=== PATIENT | female | born 1990 | race Caucasian/White ===

== ENCOUNTER → 2017-06-28 | Outpatient (CLI) | payer OTHER | END | disposition home or self-care (01) | LOC: C.PAPS 09:47 | PROVIDERS: ATTEND Physician Assistant | DX: Z12.4 Encounter for screening for malignant neoplasm of cervix (principal) ==

== ENCOUNTER 2019-01-24 15:53 | Inpatient (IN) ==
[2019-01-24] MEDS ORDERED: OXYTOCIN 30 UNITS/500 ML BAG IV PRN ×2 (16:50)
--- NOTE | 2019-01-24 16:57 | History & Physical Report ---
Date of Service January 24, 2019 Assessment & Plan (1) : Spontaneous labor with rupture of membranes. Admit to L&D, EFM/toco, IV fluids, labs. Patient is planning for epidural. Due to PCN allergy, will give ancef for GBS prophylaxis. Discussed 10% cross- reactivity with patient, given her reaction to PCN as an infant was hives and NOT anaphylaxis, feel that this is low risk. Discussed labor augmentation with pitocin - she is agreeable. Anticipate . History of Present Illness Chief Complaint: leaking of fluid, contractions Primary Care Provider: Mary Manuel 28yo @ 41 05/26 presents with leaking of clear fluid at 3pm. She began shubham at noon today. GBS+, penicillin allergy - as a baby, got hives from penicillin, has not used it or been tested since. Rh negative, rec'd rhogam 10/27/18. Remote history of opioid dependence - 10 years ago, completed rehab and has not used since. + movement, scant vaginal spotting. Allergies Allergy/AdvReac Type Severity Reaction Status Date / Time Penicillins Allergy Unknown Verified 01/23/19 10:39 Home Medications Home Medications Medication Instructions Recorded Confirmed Type prenat.vits,freddy,iie-incc-qddtd 1 tab PO DAILY 12/16/18 01/24/19 History Patient History Medical History Carrier of group B Streptococcus (Acute) Supervision of normal first (Acute) Drug dependence, in remission (Acute) 10 years ago; opiod addiction; 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 Need for rhogam due to Rh negative mother (Acute) Screening, , for anatomic survey (Acute) (Acute) Blood pressure elevated without history of HTN History of vaginal discharge Surgical History History of oral surgery History of umbilical hernia repair 5 years ago Family History Mother Hypertension Aunt Deep vein thrombosis Social History Preferred Language: Dutch Communication Ability: Effective Beliefs That Will Affect Care: None marital status: Current Living Situation: Spouse Other Information That Helps Us Care for You: No Feels Safe at Home: Yes Safety Concerns: Feels Safe At This Time Smoking Status: Former smoker Tobacco Type: cigarettes ; Do You Dip or Chew Tobacco: No ; Smoking End Date: 5 years ago ; Second Hand Exposure: No ; Hx Alcohol Use: No Hx Substance Use: No Review of Systems All systems reviewed & are unremarkable except as noted in HPI & below Physical Exam Physical Exam: Gen: AAOx3 NAD CV: RRR S1S2 L: CTAB Abd: soft, gravid, NTTP Ext: no edema, no calf tenderness SVE: 1-2/90/-2. Grossly ruptured, +nitrizine FHT Cat 1 [place] Q 3-5 minutes Results & Data Vital Signs (Past 12 Hours) Vital Signs Temp Pulse Resp BP 01/24/19 16:07 37.1 C 65 20 131/74 01/24/19 16:04 37.1 C 20 01/24/19 16:00 65 131/74
[2019-01-24] MEDS ORDERED: CEFAZOLIN 2000MG 2,000 MG/15 ML SYR IV ONE (17:00)
[2019-01-24] MEDS: LACTATED RINGER'S 1,000 ML IV PRN ×2 (17:16→21:00)
[2019-01-24 17:23] LABS: Hematocrit (blood only) 41.6 % (37-47); Hemoglobin 14.4 g/dL (12.0-16.0); Mean Platelet Volume 9.2 fL (7.4-10.4); Platelet Count 242 K/uL (130-400); RDW Coefficient of Variation 13.5 % (11.5-14.5); RDW Standard Deviation 43.3 fL (36.4-46.3); Red Blood Count 4.78 M/uL (4.2-5.4); White Blood Count 11.41 K/uL (4.8-10.8)
[2019-01-24 17:24] LABS: Mean Corpuscular Hgb Conc 34.6 g/dL (32-36)
[2019-01-24] MEDS ORDERED: ePHEDrine sulfate 50 MG/ML AMP ONE (20:11)
[2019-01-24] MEDS ORDERED: fentaNYL citrate 100 MCG/2 ML VIAL ONE (20:11)
[2019-01-24] MEDS ORDERED: BUPIVACAINE 0.25% 30 ML VIAL ONE (20:11)
[2019-01-24] MEDS ORDERED: fentaNYL 2MCG/ML ROPIV 1.25MG/ML 100 ML BAG EPI ONE (20:12)
--- NOTE | 2019-01-24 20:21 | Anesthesiology Consultation ---
Date of Service January 24, 2019 Assessment & Plan Chart Review Chart Review: Acceptable Risk for Surgery, Patient NOT seen in Pre Admission Testing and Acceptable Risk for Labor Epidural Consults Requested none ASA ASA2 Proposed Anesthesia Anesthesia Type: General and Labor Epidural Risk / Benefits Reviewed With: PT / POA / Parent / Guardian, Accepts Plan and Informed Consent Obtained History Height/Weight Height: 5 ft 6 in Weight: 108.409 kg Allergies Allergy/AdvReac Type Severity Reaction Status Date / Time Penicillins Allergy Unknown Verified 01/23/19 10:39 Medications Home Medications Medication Instructions Recorded Confirmed Last Taken prenat.vits,freddy,vhq-rgvn-eyhky 1 tab PO DAILY 12/16/18 01/24/19 01/20/19 21:00 Active Medications Generic Name Dose Route Start Last Admin Trade Name Freq PRN Reason Stop Dose Admin Lactated Ringer's 1,000 mls @ 125 mls/hr 01/24/19 16:50 01/24/19 19:08 Lr IV 01/26/19 16:49 125 mls/hr .Q8H PRN Infusion L&D Protocol Protocol Oxytocin 30 units in 500 mls @ 5 mls/hr 01/24/19 16:50 01/24/19 19:05 Pitocin IV 01/26/19 16:49 0.3 units/hr .Q24H PRN 5 mls/hr Labor Induction/Augmentation Titration Protocol 0.3 UNITS/HR NPO Date Last Intake of Fluids: 01/24/19 Time Last Intake of Fluids: 20:00 Date Last Intake of Solids: 01/24/19 Time Last Intake of Solids: 13:30 Past Medical History Medical History Carrier of group B Streptococcus (Acute) Supervision of normal first (Acute) Drug dependence, in remission (Acute) 10 years ago; opiod addiction; 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 Need for rhogam due to Rh negative mother (Acute) Screening, , for anatomic survey (Acute) (Acute) GERD (gastroesophageal reflux disease) Obese Blood pressure elevated without history of HTN History of vaginal discharge Exercise / Class Metabolic Activity II 4-5 Yardwork/Stairs/Walk up hill Past Family History Family History Mother Hypertension Aunt Deep vein thrombosis Past Surgical History Surgical History History of oral surgery History of umbilical hernia repair 5 years ago Past Anesthesia History No Hx of Anesthesia Complications and No Family Hx of Anesthesia Complications History of PONV No Hx of PONV and No Hx of Motion Sickness Social History Smoking Status: Former smoker tobacco type: cigarettes Do You Dip or Chew Tobacco: No Smoking End Date: 5 years ago Hx Alcohol Use: No Alcohol type: wine alcohol intake frequency: a few times a month Hx Substance Use: No substance use type: opiates and painkillers Substance Use Type Other:: oxycontin Physical Exam Vital Signs Last Vital Signs Temp 37.5 C 01/24/19 19:12 Pulse 69 01/24/19 19:12 Resp 18 01/24/19 19:12 BP 146/77 H 01/24/19 19:12 Constitutional + obese ENMT Mouth: no dentition abnormality Thyromental Distance: > or= 3.5 Finger Breadths Mallampati Class: II Neck normal visual inspection and trachea midline; neck extension not limited Respiratory normal respiratory effort Auscultation: lungs clear to auscultation bilaterally Cardiovascular Rate/Rhythm: regular rate and regular rhythm Heart Sounds: no murmur Musculoskeletal Spine: lumbar spine normal to inspection; normal cervical ROM Neurologic moves all extremities Motor/Sensory: no sensory deficit Psychiatric Orientation: alert and oriented x 3 Testing Laboratory Results 01/24/19 16:59
[2019-01-24] MEDS ORDERED: PROMETHAZINE HCL 25 MG in SODIUM CHLORIDE 0.9% 50 ML IV PRN (20:45)
[2019-01-24] MEDS ORDERED: NALBUPHINE HCL INJ 10 MG/ML AMP IV PRN (20:45)
[2019-01-24] MEDS ORDERED: fentaNYL 2MCG/ML ROPIV 1.25MG/ML 100 ML BAG EPI PRN (20:45)
[2019-01-24] MEDS ORDERED: ONDANSETRON INJ 2 MG/ML 2 ML VIAL IV PRN (20:45)
[2019-01-24] MEDS ORDERED: DiphenhydrAMINE HCL 50 MG/ML VIAL IV PRN (20:45)
[2019-01-24] MEDS ORDERED: NALOXONE HCL 1 MG in SODIUM CHLORIDE 0.9% 1000ML 1,000 ML IV PRN (20:45)
[2019-01-24] MEDS ORDERED: NALOXONE HCL 0.4 MG/1 ML VIAL/CARP IV PRN (20:45)
[2019-01-24] MEDS ORDERED: ePHEDrine sulfate 50 MG/ML AMP IV PRN (20:45)
--- NOTE | 2019-01-24 21:44 | Labor Progress Brief Note ---
Date of Service January 24, 2019 Subjective Comfortable with epidural. FHT - 150s with deep late decelerations [place] Q 2 Pitocin was stopped, patient repositioned, O2 given by mask. Baby recovered, with FHT now cat 1. Will monitor for 30 minutes, and plan to restart pitocin and continue close monitoring at that time. Results & Data Vital Signs (Past 12 Hours) Vital Signs Temp Pulse Resp BP Pulse Ox 01/24/19 21:40 59 L 99 01/24/19 21:36 65 92 01/24/19 21:35 57 L 99 01/24/19 21:30 88 85 L 01/24/19 21:27 61 91 01/24/19 21:25 59 L 96 01/24/19 21:21 62 90 01/24/19 21:20 60 99 01/24/19 21:18 60 133/64 01/24/19 21:16 63 91 01/24/19 21:15 61 98 01/24/19 21:10 60 97 01/24/19 21:06 63 93 01/24/19 21:05 62 94 01/24/19 21:00 36.6 C 73 18 126/65 97 01/24/19 20:57 63 18 124/67 01/24/19 20:55 62 96 01/24/19 20:52 61 124/67 94 01/24/19 20:50 65 97 01/24/19 20:46 60 121/64 01/24/19 20:45 67 96 01/24/19 20:44 81 119/77 01/24/19 20:42 72 122/75 01/24/19 20:40 75 18 113/62 97 01/24/19 20:38 75 127/79 94 01/24/19 20:36 78 130/82 01/24/19 20:35 102 H 93 01/24/19 20:34 96 H 133/68 01/24/19 20:30 86 94 01/24/19 20:25 91 H 94 01/24/19 20:20 96 H 97 01/24/19 20:17 78 18 144/86 H 01/24/19 19:12 37.5 C 69 18 146/77 H 01/24/19 18:19 90 20 147/68 H 01/24/19 17:27 80 133/75 01/24/19 16:07 37.1 C 65 20 131/74 01/24/19 16:04 37.1 C 20 01/24/19 16:00 65 131/74
[2019-01-25] MEDS ORDERED: CEFAZOLIN 1000MG 1,000 MG/7.5 ML SYR IV PRN (01:00)
[2019-01-25] MEDS: LACTATED RINGER'S 1,000 ML IV PRN ×2 (01:01→06:00)
--- NOTE | 2019-01-25 08:16 | Delivery Summary ---
Vaginal Delivery Summary Date of Service January 25, 2019 Vaginal Delivery Summary Vaginal Delivery Summary: Pre-delivery diagnoses: 28yo @ 41 2/7, Rh negative, GBS+, penicillin allergy Post-delivery diagnoses: same + 2nd degree perineal laceration Procedure: spontaneous vaginal delivery, repair of 2nd degree perineal laceration Surgeon: Mary Castanon DO Complications: none Findings: Viable female . Apgars: 8/9 . Weight pending, please see nursery records Estimated blood loss: 300ml Description of delivery: The patient progressed to complete with epidural anesthesia. She received 2 doses of IV ancef for GBS prophylaxis during labor. She then began to push. She spontaneously vaginally delivered a viable female from the cephalic presentation. The head delivered in MEI position. The anterior shoulder delivered, followed by the posterior shoulder, followed by the body. The baby was placed on mother's abdomen and a spontaneous cry was heard. Delayed cord clamping was employed, and the cord was doubly clamped and cut. Cord blood was obtained. The placenta was delivered spontaneously intact with a 3-vessel cord. The uterus and vagina were swept of clots and debris. IV pitocin was given. The uterus became firm. The cervix, vagina, and perineum were inspected and a 2nd degree perineal laceration and a right vaginal sulcal laceration were noted. The 2nd degree laceration was repaired with 3-0 vicryl in a locking running stitch and the sulcal tear was hemostatic, and therefore not repaired. Excellent hemostasis was observed. The mother and baby are recovering in stable and good condition in the room. Sponge, needle and instrument counts were correct x 2. Mary Castanon DO [facility] – [place], [place]
[2019-01-25] MEDS ORDERED: OXYTOCIN 30 UNITS/500 ML BAG IV PRN (08:26)
[2019-01-25] MEDS ORDERED: SUPERCREAM 0.870% 15 GM JAR EXT PRN (08:26)
[2019-01-25] MEDS ORDERED: HYDROCORTISONE ACETATE 25 MG SUPP PR PRN (08:26)
[2019-01-25] MEDS ORDERED: BISACODYL 10 MG SUPP PR PRN (08:26)
[2019-01-25] MEDS ORDERED: BENZOCAINE 20% AER SPR 82.5 GM CAN EXT PRN (08:26)
[2019-01-25] MEDS: IBUPROFEN 600 MG TAB PO PRN ×3 (09:40→23:55)
--- NOTE | 2019-01-25 10:45 | Anesthesia Procedure Note ---
Date of Service January 25, 2019 Anesthesia Post Epidural Note Vital Signs Vital Signs: Temp Pulse Resp BP Pulse Ox 37.4 C 94 H 20 111/70 94 01/25/19 07:02 01/25/19 10:33 01/25/19 10:04 01/25/19 10:33 01/25/19 07:50 Pain Intensity Back: Pain Intensity: 4 Notes Mental Status: alert / awake / arousable Nausea / Vomiting: adequately controlled Pain: adequately controlled Airway Patency, RR, SpO2: stable & adequate BP & HR: stable & adequate Hydration State: stable & adequate Neuraxial Anesthesia: was administered and sensory block is resolving Anesthetic Complications: no major complications apparent Epidural: Removed without complications and With tip intact
[2019-01-25] MEDS: DOCUSATE SODIUM 100 MG CAP PO SCH (20:53)
[2019-01-25] MEDS: ACETAMINOPHEN 325 MG TAB PO PRN (20:58)
[2019-01-26] MEDS: IBUPROFEN 600 MG TAB PO PRN ×4 (04:03→20:15)
--- NOTE | 2019-01-26 06:17 | Obstetrical Progress Note ---
Date of Service <Brian Castellano MD - Last Filed: 01/26/19 07:05> January 26, 2019 Assessment & Plan <Brian Castellano MD - Last Filed: 01/26/19 07:05> (1) : Spontaneous labor with rupture of membranes on 01/25 PPD#1 Feels well today, eating well, voiding well, ambulating well pain well controlled After discharge will have 6 week follow-up Subjective <Brian Castellano MD - Last Filed: 01/26/19 07:05> Feeling well today, having some continued abdominal cramping, able to void without difficulties; continued to have some spotting but has lessened overnight Review of Systems Constitutional: denies fever; chills; sweats; headache Respiratory: denies shortness of breath, difficulty breathing Cardiac: denies chest pain; palpitations; chest pressure Breast: denies breast pain : denies dysuria Physical Exam <Brian Castellano MD - Last Filed: 01/26/19 07:05> General: alert; oriented; no acute distress Cardiac: RRR; no m/g/r Respiratory: CTAB a/p; no wheezes/rales/rhonchi; no increased work of breathing; symmetrical chest rise; no respiratory distress Abdomen: soft; NT/ND; bowel sounds positive Uterus: uterine fundus firm; palpable 3cm below umbilicus Lower extrem: no lower extremity edema or swelling; no deep calf pain; Sy's sign negative b/l Results & Data <Brian Castellano MD - Last Filed: 01/26/19 07:05> Vital Signs (Past 12 Hours) Vital Signs Temp Pulse Resp BP 01/26/19 04:00 36.6 C 86 18 122/69 01/26/19 01:10 36.6 C 66 16 122/73 01/25/19 19:45 36.7 C 98 H 20 115/77 Medications Administered Current Inpatient Medications Acetaminophen (Tylenol) 650 mg PO Q6H PRN PRN Reason: Pain/BEGUM/Fever Stop: 02/24/19 08:25 Last Admin: 01/25/19 20:58 Dose: 650 mg Documented by: Benzocaine (Dermoplast Pain Relieving [place]) 1 appln EXT PRN PRN PRN Reason: Perineal Discomfort Stop: 02/24/19 08:25 Bisacodyl (Dulcolax) 5 mg PO 1999 [facility] Stop: 01/26/19 20:01 Bisacodyl (Dulcolax) 10 mg [place] DAILY PRN PRN Reason: No BM on 2nd post- day Stop: 02/24/19 08:25 Cocaine HCl (Supercream 0.870%) 1 gm EXT BID PRN PRN Reason: Hemorrhoidal Inflammation Stop: 02/08/19 08:25 Diphtheria/Pertussis/Tetanus Vacc (Adacel) 0.5 ml IM .ONCE ONE Stop: 01/26/19 09:01 Last Admin: 01/25/19 09:00 Dose: Not Given Documented by: Docusate Sodium (Colace) 100 mg PO DAILY@, [facility] Stop: 02/24/19 20:59 Last Admin: 01/25/19 20:53 Dose: 100 mg Documented by: Hydrocortisone (Anusol Hc) 25 mg [place] BID PRN PRN Reason: Hemorrhoidal Inflammation Stop: 02/24/19 08:25 Oxytocin (Pitocin) 30 units in 500 mls @ 333.333 mls/hr IV .Q1H30M PRN; Protocol PRN Reason: Bleeding Control Stop: 02/24/19 08:25 Ibuprofen (Motrin) 600 mg PO Q4H PRN PRN Reason: Pain/BEGUM/Cramping/Fever Stop: 02/24/19 08:25 Last Admin: 01/26/19 04:03 Dose: 600 mg Documented by: Prenat Multivit/Swatch Maker/Iron/Folic Ac ( Vitamin) 1 tab PO DAILY@08 [facility] Stop: 02/25/19 07:59 <Mary Castanon DO - Last Filed: 01/26/19 07:51> Co-Signing Physician Notes Resident Physician Supervision Note: I interviewed and examined the patient. Discussed with Dr. Castellano and agree with findings and plan as documented in the note. Any exceptions or clarifications are listed here: PPD#1 doing well. Anticipate DC home tomorrow. In resident's note above, there is an error stating there is cervical exam and monitoring - this is not correct, but unable to remove from [employer] system. Documented By: Mary Castanon DO Resident Activity Tracking <Brian Castellano MD - Last Filed: 09/09/19 07:05> Resident Involvement: Resident Care Provided Care Provided: Adult [facility] Medicine
[2019-01-26 07:10] LABS: Hematocrit (blood only) 32.8 % (37-47); Hemoglobin 11.2 g/dL (12.0-16.0); Mean Corpuscular Hgb Conc 34.1 g/dL (32-36); Mean Corpuscular Volume 88.6 fL (80-100); Mean Platelet Volume 8.7 fL (7.4-10.4); Platelet Count 205 K/uL (130-400); RDW Coefficient of Variation 14.1 % (11.5-14.5); RDW Standard Deviation 45.7 fL (36.4-46.3); White Blood Count 13.25 K/uL (4.8-10.8)
[2019-01-26] MEDS: DOCUSATE SODIUM 100 MG CAP PO SCH ×2 (08:09→20:16)
[2019-01-26] MEDS: PRENATAL VITAMIN 1 TAB PO SCH (08:09)
[2019-01-26] MEDS ORDERED: DIPHTHERIA/TETANUS/PERTUSSIS 0.5 ML SYR/VIAL IM ONE (09:00)
[2019-01-26] MEDS ORDERED: BISACODYL 5 MG TABEC PO SCH (20:00)
[2019-01-26] MEDS: ACETAMINOPHEN 325 MG TAB PO PRN (21:54)
[2019-01-27 06:32] LABS: Hemoglobin 11.4 g/dL (12.0-16.0)
--- NOTE | 2019-01-27 06:41 | Obstetrical Progress Note ---
Date of Service <Brian Castellano MD - Last Filed: 01/27/19 06:41> January 27, 2019 Assessment & Plan <Brian Castellano MD - Last Filed: 01/27/19 06:41> (1) : Spontaneous labor with rupture of membranes on 01/25 PPD#2 Feels well today, eating well, voiding well, ambulating well pain well controlled After discharge will have 6 week follow-up Subjective <Brian Castellano MD - Last Filed: 01/27/19 06:41> Ms Uriarte is a 28y/o female ; PPD #2 following spontaneous vaginal delivery at 38 5/7 weeks; doing well this morning; still having some abdominal cramping/pain; voiding well and passing gas but no BMs; tolerating meals overnight; and able to ambulate some; some persistent spotting with intermittent improvement this morning. Review of Systems Constitutional: denies fever; chills; sweats; headache Respiratory: denies shortness of breath, difficulty breathing Cardiac: denies chest pain; palpitations; chest pressure Breast: denies breast pain : denies dysuria Physical Exam <Brian Castellano MD - Last Filed: 01/27/19 06:41> General: alert; oriented; no acute distress Cardiac: RRR; no m/g/r Respiratory: CTAB a/p; no wheezes/rales/rhonchi; no increased work of breathing; symmetrical chest rise; no respiratory distress Abdomen: soft; NT/ND; bowel sounds positive Uterus: uterine fundus firm; palpable 4cm below umbilicus Lower extrem: no lower extremity edema or swelling; no deep calf pain; Sy's sign negative b/l Results & Data <Brian Castellano MD - Last Filed: 01/27/19 06:41> Vital Signs (Past 12 Hours) Vital Signs Temp Pulse Pulse Resp BP BP 01/26/19 23:35 36.7 C 71 16 119/79 01/26/19 19:30 135/82 01/26/19 19:25 36.8 C 81 16 151/94 H Laboratory Results 01/27/19 01/26/19 Range/Units 06:01 06:45 WBC 13.25 H (4.8-10.8) K/uL RBC 3.70 L (4.2-5.4) M/uL Hgb 11.4 L 11.2 L D (12.0-16.0) g/dL Hct 34.0 L 32.8 L (37-47) % MCV 88.6 (80-100) fL MCH 30.3 (25-34) pg MCHC 34.1 (32-36) g/dL RDW Std Deviation 45.7 (36.4-46.3) fL RDW Coeff of [place] 14.1 (11.5-14.5) % Plt Count 205 (130-400) K/uL MPV 8.7 (7.4-10.4) fL Medications Administered Current Inpatient Medications Acetaminophen (Tylenol) 650 mg PO Q6H PRN PRN Reason: Pain/BEGUM/Fever Stop: 02/24/19 08:25 Last Admin: 01/26/19 21:54 Dose: 650 mg Documented by: Benzocaine (Dermoplast Pain Relieving [place]) 1 appln EXT PRN PRN PRN Reason: Perineal Discomfort Stop: 02/24/19 08:25 Bisacodyl (Dulcolax) 10 mg [place] DAILY PRN PRN Reason: No BM on 2nd post- day Stop: 02/24/19 08:25 Cocaine HCl (Supercream 0.870%) 1 gm EXT BID PRN PRN Reason: Hemorrhoidal Inflammation Stop: 02/08/19 08:25 Docusate Sodium (Colace) 100 mg PO DAILY@08,21 [facility] Stop: 02/24/19 20:59 Last Admin: 01/26/19 20:16 Dose: 100 mg Documented by: Hydrocortisone (Anusol Hc) 25 mg [place] BID PRN PRN Reason: Hemorrhoidal Inflammation Stop: 02/24/19 08:25 Oxytocin (Pitocin) 30 units in 500 mls @ 333.333 mls/hr IV .Q1H30M PRN; Protocol PRN Reason: Bleeding Control Stop: 02/24/19 08:25 Ibuprofen (Motrin) 600 mg PO Q4H PRN PRN Reason: Pain/BEGUM/Cramping/Fever Stop: 02/24/19 08:25 Last Admin: 01/26/19 20:15 Dose: 600 mg Documented by: Prenat Multivit/Retail Merchandising Manager/Iron/Folic Ac ( Vitamin) 1 tab PO DAILY@08 [facility] Stop: 02/25/19 07:59 Last Admin: 01/26/19 08:09 Dose: 1 tab Documented by: <Vanessa Coello MD, FACOG - Last Filed: 01/27/19 07:54> Co-Signing Physician Notes Resident Physician Supervision Note: I was present with Dr. Castellano during the history and exam. I discussed the case with the resident and agree with the findings and plan as documented in the note. Any exceptions or clarifications are listed here: doing well. ready for d/c home. instructions reviewed. f/u 6 wk pp check. ff 2 down. breast feeding. rhogam ordered to be given. Documented By: Vanessa Coello MD, FACOG Resident Activity Tracking <Brian Castellano MD - Last Filed: 01/27/19 06:41> Resident Involvement: Resident Care Provided Care Provided: OB Delivery
[2019-01-27] MEDS: DOCUSATE SODIUM 100 MG CAP PO SCH (08:32)
[2019-01-27] MEDS: PRENATAL VITAMIN 1 TAB PO SCH (08:33)
[2019-01-27] MEDS: IBUPROFEN 600 MG TAB PO PRN (08:33)
== END 2019-01-27 14:24 | disposition home or self-care (01) | DRG 807 ==
LOC: OPB 15:53 → 4S1 15:54 → 4S2 01-25 11:12
DX: Z88.0 Allergy status to penicillin; O42.02 Full-term premature rupture of membranes, onset of labor within 24 hours of rupture; O99.820 Streptococcus B carrier state complicating pregnancy; Z87.891 Personal history of nicotine dependence; Z3A.41 41 weeks gestation of pregnancy; Z37.0 Single live birth; O48.0 Post-term pregnancy; O70.1 Second degree perineal laceration during delivery

== ENCOUNTER 2022-02-27 07:42 | Inpatient (IN) ==
[2022-02-27] MEDS ORDERED: OXYTOCIN 30 UNITS/500 ML BAG IV PRN ×3 (08:07→16:17)
[2022-02-27] MEDS ORDERED: LIDOCAINE 1% LOCAL 20 ML VIAL INFIL PRN (08:07)
[2022-02-27] MEDS ORDERED: ceFAZolin 2000MG 2,000 MG/15 ML SYR IV STA (08:15)
--- NOTE | 2022-02-27 08:24 | History & Physical Report ---
Date of Service February 27, 2022 Assessment & Plan (1) Encounter for induction of labor: (2) Carrier of group B Streptococcus: (3) Need for rhogam due to Rh negative mother: Plan admit, iv, labs. begin pitocin induction. start kefzol for gbs positive. rhogam eval pp. fhts categ 1. Admission and Anticipated Discharge Date Admission Date: February 27, 2022 History of Present Illness Chief Complaint: planned induction Primary Care Provider: LITO Prasad 31yo at 40wk ega presents to L&D for planned induction. No rom, no vb. Balloon from last pm fell out. No ctx. PNC c/b 1. GBS pos, pcn allergy rash 2. Rh neg 3. Drug dependence in remission PNL rh neg, ri, gbs neg OBH: x1 GYNH: nl paps Allergies Allergy/AdvReac Type Severity Reaction Status Date / Time Penicillins Allergy Hives Verified 02/26/22 19:35 Home Medications Medication Instructions Recorded Confirmed Type prenat.vits,freddy,hyz-pzth-ecufk 1 tab PO DAILY 07/17/21 02/26/22 History cetirizine 10 mg capsule (Zyrtec) 10 mg PO DAILY PRN Acid Reflux 10/12/21 02/26/22 History Patient History Medical History (Updated 02/27/22 @ 08:23 by Vanessa Coello MD, FACOG) Blood pressure elevated without history of HTN 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, 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; opiod addiction; 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 GERD (gastroesophageal reflux disease) History of vaginal discharge Need for rhogam due to Rh negative mother Obese Screening, , for anatomic survey Supervision of normal first Varicella vaccination Surgical History History of oral surgery History of umbilical hernia repair Family History (Updated 07/17/21 @ 09:54 by Kitty Miranda) Mother Hypertension Aunt Deep vein thrombosis Denies family history of Ovarian cancer Breast cancer Colorectal cancer Social History (Updated 07/17/21 @ 09:55 by Kitty Miranda) Smoking Status: Former smoker Second Hand Exposure: No; Hx Alcohol Use: No Hx Substance Use: Yes Last Used Substance: Days (ago) Last Used Substance Other:: 12 years ago Substance Use Type Other:: oxycontin Preferred Language: Kazakh Communication Ability: Effective Beliefs That Will Affect Care: None marital status: marital status details: Javy Uriarte (33) [phone] Current Living Situation: Spouse and Family Current Living Situation Comment: lives with spouse, daughter, dogs, cats- spouse changing litter current occupational status: employed current occupation: [employer] service [employer] Feels Safe at Home: Yes Assistive Devices: Glasses Review of Systems as per Subjective / HPI Physical Exam Constitutional: WD/WN, vitals as above Respiratory: normal respiratory effort, lungs clear to auscultation Cardiovascular: Rate/Rhythm: regular rate and regular rhythm Gastrointestinal (Abdomen): soft gravid nt efw 8-9# Musculoskeletal: no edema nontender calves Neurologic: grossly normal Psychiatric: A+Ox3, euthymic affect Genitourinary: Manual OB Exam: + cervical dilation 4 cm, + cervical effacement 50% and + station -2 OB Exam Monitor Tracing: + external FHT monitor used, + external uterine monitor used (irreg), + category I and + normal FHT variability Results & Data ([facility]) Vital Signs (Past 12 Hours) Vital Signs Pulse BP 02/27/22 07:55 97 H 129/76 Coding Level of Care Code None Diagnoses Encounter for induction of labor Z34.90 Carrier of group B Streptococcus Z22.330 Need for rhogam due to Rh negative mother Z29.13
[2022-02-27 08:26] LABS: Hematocrit (blood only) 37.3 % (34.1-44.9); Hemoglobin 12.8 g/dl (12.0-16.0); Mean Corpuscular Hemoglobin 30.5 pg (25.0-34.0); Mean Corpuscular Hgb Conc 34.3 g/dL (32.0-36.0); Mean Platelet Volume 8.8 fL (9.4-12.3); Platelet Count 215 K/uL (130-400); RDW Coefficient of Variation 13.2 % (11.5-14.5); RDW Standard Deviation 42.8 fL (36.4-46.3); Red Blood Count 4.19 M/uL (3.93-5.22); White Blood Count 10.17 K/ul (4.8-10.8)
[2022-02-27] MEDS: LACTATED RINGER'S 1,000 ML IV PRN ×3 (08:41→19:01)
[2022-02-27] MEDS ORDERED: BUPIVACAINE 0.25% 30 ML VIAL ONE (12:09)
[2022-02-27] MEDS ORDERED: SODIUM CHLORIDE 0.9% INJ 10 ML VIAL ONE (12:09)
[2022-02-27] MEDS ORDERED: fentaNYL citrate 100 MCG/2 ML VIAL ONE ×2 (12:09→21:58)
[2022-02-27] MEDS ORDERED: LIDOCAINE 2%/EPINEPHRINE 1:200,000 20 ML SDV ONE (12:09)
[2022-02-27] MEDS ORDERED: ePHEDrine sulfate 50 MG/ML AMP ONE (12:09)
[2022-02-27] MEDS ORDERED: fentaNYL 2MCG/ML ROPIVACAINE 1.25MG/ML 100 ML BAG EPI ONE (12:10)
[2022-02-27] MEDS ORDERED: NALOXONE HCL 0.4 MG/1 ML VIAL/CARP IV PRN (12:34)
[2022-02-27] MEDS ORDERED: ePHEDrine sulfate 50 MG/ML AMP IV PRN ×2 (12:34→21:46)
[2022-02-27] MEDS ORDERED: NALOXONE HCL 1 MG in SODIUM CHLORIDE 0.9% 1000ML 1,000 ML IV PRN (12:34)
[2022-02-27] MEDS ORDERED: diphenhydrAMINE 50 MG/ML VIAL IV PRN (12:34)
[2022-02-27] MEDS ORDERED: ONDANSETRON INJ 2 MG/ML 2 ML VIAL IV PRN ×2 (12:34→21:46)
[2022-02-27] MEDS ORDERED: fentaNYL 2MCG/ML ROPIVACAINE 1.25MG/ML 100 ML BAG EPI PRN (12:34)
[2022-02-27] MEDS ORDERED: NALBUPHINE HCL INJ 10 MG/ML AMP IV PRN (12:34)
--- NOTE | 2022-02-27 12:39 | Anesthesiology Consultation ---
Date of Service February 27, 2022 Assessment & Plan Chart Review Chart Review: Patient NOT seen in Pre Admission Testing and Acceptable Risk for Labor Epidural Consults Requested none ASA ASA2 Proposed Anesthesia Anesthesia Type: Labor Epidural and CSE Risk / Benefits Reviewed With: PT / POA / Parent / Guardian, Accepts Plan and Informed Consent Obtained History Height/Weight Height: 5 ft 6 in Weight: 102.058 kg Allergies Allergy/AdvReac Type Severity Reaction Status Date / Time Penicillins Allergy Hives Verified 02/26/22 19:35 Medications Home Medications Medication Instructions Recorded Confirmed Last Taken prenat.vits,freddy,[id number]-uxxdb 1 tab PO DAILY 07/17/21 02/26/22 Unknown cetirizine 10 mg capsule (Zyrtec) 10 mg PO DAILY PRN Acid Reflux 10/12/21 02/26/22 Unknown Active Medications Generic Name Dose Route Start Last Admin Trade Name Freq PRN Reason Stop Dose Admin Oxytocin 30 units in 500 mls @ 9 mls/hr 02/27/22 08:07 02/27/22 11:00 Pitocin IV 03/01/22 08:06 0.54 units/hr .Q24H PRN 9 mls/hr Labor Induction/Augmentation Titration Protocol 0.54 UNITS/HR Lactated Ringer's 1,000 mls @ 125 mls/hr 02/27/22 08:07 02/27/22 12:05 Lr IV 03/01/22 08:06 999 mls/hr .Q8H PRN Infusion L&D Protocol Protocol NPO Date Last Intake of Fluids: 02/27/22 Time Last Intake of Fluids: 12:00 Date Last Intake of Solids: 02/27/22 Time Last Intake of Solids: 07:00 Past Medical History Medical History Blood pressure elevated without history of HTN 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, 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; opiod addiction; 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 GERD (gastroesophageal reflux disease) History of vaginal discharge Need for rhogam due to Rh negative mother Obese Screening, , for anatomic survey Supervision of normal first Varicella vaccination Exercise / Class Metabolic Activity II 4-5 Yardwork/Stairs/Walk up hill Past Family History Family History Mother Hypertension Aunt Deep vein thrombosis Denies family history of Ovarian cancer Breast cancer Colorectal cancer Past Surgical History Surgical History History of oral surgery History of umbilical hernia repair 5 years ago Past Anesthesia History No Hx of Anesthesia Complications and No Family Hx of Anesthesia Complications History of PONV No Hx of PONV and No Hx of Motion Sickness Social History Smoking Status: Never smoker tobacco type: cigarettes Hx Alcohol Use: No Alcohol type: wine alcohol intake frequency: a few times a month Hx Substance Use: No substance use type: marijuana and painkillers Substance Use Type Other:: oxycontin Last Used Substance: Days (ago) Last Used Substance Other:: 12 years ago Review of Systems no chest pain or sob Physical Exam Vital Signs Last Vital Signs Temp 36.6 C 02/27/22 10:57 Pulse 66 02/27/22 12:34 Resp 20 02/27/22 10:57 BP 123/84 02/27/22 12:19 Pulse Ox 100 02/27/22 12:34 ENMT Mouth: no TMJ abnormality Thyromental Distance: > or= 3.5 Finger Breadths Mallampati Class: II Neck normal visual inspection Respiratory normal respiratory effort Auscultation: lungs clear to auscultation bilaterally Cardiovascular Rate/Rhythm: regular rate and regular rhythm Musculoskeletal Spine: normal cervical ROM Neurologic moves all extremities Psychiatric Orientation: alert and oriented x 3 Testing Laboratory Results 02/27/22 08:13
[2022-02-27] MEDS ORDERED: ceFAZolin 1000MG 1,000 MG/7.5 ML SYR IV PRN (15:07)
[2022-02-27] MEDS ORDERED: bisacodyL 10 MG SUPP PR PRN (16:17)
[2022-02-27] MEDS ORDERED: ACETAMINOPHEN 325 MG TAB PO PRN (16:17)
[2022-02-27] MEDS ORDERED: HYDROCORTISONE ACETATE 25 MG SUPP PR PRN (16:17)
[2022-02-27] MEDS ORDERED: BENZOCAINE 20% AER SPR 82.5 GM CAN EXT PRN (16:17)
[2022-02-27] MEDS ORDERED: DIPHTHERIA/TETANUS/PERTUSSIS 0.5 ML SYR/VIAL IM ONE (16:17)
--- NOTE | 2022-02-27 16:18 | Delivery Summary ---
Vaginal Delivery Summary Date of Service February 27, 2022 Vaginal Delivery Summary Patient induced postdates group B strep given Ancef and adequate coverage as it was a least 4 hours from delivery induction begun with Pitocin she requested epidural artificial rupture membranes for clear fluid delivered over 2 contractions in occiput anterior position anterior shoulder was gently released and gentle traction of the baby from there on no excessive force live vigorous female infant cord clamped and cut cord blood obtained placenta removed with traction IV Pitocin started second-degree tear repaired with 3-0 Vicryl in the usual fashion sponge and instrument counts correct estimated blood loss 300 mL
--- NOTE | 2022-02-27 17:06 | Anesthesia Procedure Note ---
Date of Service February 27, 2022 Anesthesia Post Epidural Note Vital Signs Vital Signs: Temp Pulse Resp BP Pulse Ox 36.7 C 62 20 122/70 98 02/27/22 13:20 02/27/22 17:04 02/27/22 16:22 02/27/22 17:04 02/27/22 16:04 Notes Mental Status: alert / awake / arousable and participated in evaluation Nausea / Vomiting: adequately controlled Pain: adequately controlled Airway Patency, RR, SpO2: stable & adequate BP & HR: stable & adequate Hydration State: stable & adequate Neuraxial Anesthesia: was administered and sensory block is resolving Anesthetic Complications: no major complications apparent and Pt Satisfied with anesthetic care Epidural: Removed without complications and With tip intact
[2022-02-27] MEDS: IBUPROFEN 600 MG TAB PO PRN (17:35)
[2022-02-27] MEDS ORDERED: SODIUM CHLORIDE 0.9% 250 ML IV PRN (19:41)
--- NOTE | 2022-02-27 19:51 | Obstetrical Progress Note ---
Date of Service February 27, 2022 Assessment & Plan Admission and Anticipated Discharge Date Admission Date: February 27, 2022 Subjective 500 cc Clots evacuated from uterus after delivery, bleeding much improved Results & Data ([facility]) Vital Signs (Past 12 Hours) Vital Signs Temp Pulse Resp BP Pulse Ox 02/27/22 17:07 20 02/27/22 16:52 20 02/27/22 16:37 20 02/27/22 18:30 20 02/27/22 17:22 20 02/27/22 16:22 20 02/27/22 08:02 97.9 F 20 02/27/22 19:48 76 02/27/22 19:48 116/70 02/27/22 19:29 90 02/27/22 19:29 106/72 02/27/22 19:24 73 02/27/22 19:24 139/68 02/27/22 18:58 68 02/27/22 18:58 89/50 L 02/27/22 18:57 111 H 02/27/22 18:57 86/47 L 02/27/22 18:49 100 H 02/27/22 18:49 106/56 L 02/27/22 18:34 100 H 02/27/22 18:34 109/61 02/27/22 18:19 98 H 02/27/22 18:19 113/71 02/27/22 18:04 106 H 02/27/22 18:04 118/76 02/27/22 17:49 88 02/27/22 17:49 122/76 02/27/22 17:34 77 02/27/22 17:34 122/67 02/27/22 17:19 75 02/27/22 17:19 126/68 02/27/22 17:04 62 02/27/22 17:04 122/70 02/27/22 16:49 71 02/27/22 16:49 116/62 02/27/22 16:34 126/67 02/27/22 16:22 85 02/27/22 16:22 131/69 02/27/22 16:04 98 02/27/22 16:04 87 02/27/22 16:04 137/63 02/27/22 15:59 100 02/27/22 16:00 88 L 02/27/22 15:59 82 02/27/22 16:00 95 H 02/27/22 15:54 99 02/27/22 15:54 80 02/27/22 15:49 100 02/27/22 15:49 78 02/27/22 15:49 119/67 02/27/22 15:44 98 02/27/22 15:44 76 02/27/22 15:39 98 02/27/22 15:39 75 02/27/22 15:15 20 02/27/22 15:15 20 02/27/22 15:31 20 02/27/22 15:31 20 02/27/22 15:34 98 02/27/22 15:34 75 02/27/22 15:34 115/68 02/27/22 15:29 98 02/27/22 15:29 81 02/27/22 15:24 98 02/27/22 15:24 81 02/27/22 15:19 97 02/27/22 15:19 82 02/27/22 15:19 112/65 02/27/22 15:14 99 02/27/22 15:14 77 02/27/22 15:09 98 02/27/22 15:09 67 02/27/22 14:45 20 02/27/22 14:45 20 02/27/22 15:01 20 02/27/22 15:01 20 02/27/22 15:04 98 02/27/22 15:04 65 02/27/22 15:04 110/61 02/27/22 14:59 97 02/27/22 14:59 70 02/27/22 14:54 97 02/27/22 14:54 71 02/27/22 14:49 97 02/27/22 14:49 85 02/27/22 14:49 110/65 02/27/22 14:44 97 02/27/22 14:44 82 02/27/22 14:39 97 02/27/22 14:39 64 02/27/22 14:34 97 02/27/22 14:34 70 02/27/22 14:34 65 02/27/22 14:34 122/64 02/27/22 14:31 20 02/27/22 14:31 20 02/27/22 13:31 16 02/27/22 13:31 16 02/27/22 14:29 97 02/27/22 14:29 68 02/27/22 13:45 20 02/27/22 13:45 20 02/27/22 14:24 98 02/27/22 14:24 65 02/27/22 14:19 98 02/27/22 14:19 63 02/27/22 14:20 63 02/27/22 14:20 120/71 02/27/22 14:14 98 02/27/22 14:14 77 02/27/22 14:09 96 02/27/22 14:09 65 02/27/22 14:04 98 02/27/22 14:04 64 02/27/22 14:04 121/68 02/27/22 14:00 20 02/27/22 14:00 20 02/27/22 13:59 97 02/27/22 13:59 64 02/27/22 13:54 98 02/27/22 13:54 64 02/27/22 13:51 62 02/27/22 13:51 118/66 02/27/22 13:49 98 02/27/22 13:49 63 02/27/22 13:44 98 02/27/22 13:44 62 02/27/22 13:39 98 02/27/22 13:39 71 02/27/22 13:35 61 02/27/22 13:35 126/70 02/27/22 13:34 98 02/27/22 13:34 68 02/27/22 13:20 20 02/27/22 13:20 98.1 F 20 02/27/22 13:29 99 02/27/22 13:29 66 02/27/22 13:24 94 02/27/22 13:24 71 02/27/22 13:21 87 02/27/22 13:21 116/73 02/27/22 13:19 98 02/27/22 13:19 64 02/27/22 13:17 63 02/27/22 13:17 107/65 02/27/22 13:15 60 02/27/22 13:15 111/65 02/27/22 13:14 100 02/27/22 13:14 67 02/27/22 13:05 20 02/27/22 13:05 20 02/27/22 13:13 68 02/27/22 13:13 108/64 02/27/22 13:11 78 02/27/22 13:11 102/63 02/27/22 13:09 98 02/27/22 13:09 66 02/27/22 13:09 106/64 02/27/22 13:07 65 02/27/22 13:07 115/66 02/27/22 13:05 80 02/27/22 13:05 116/64 02/27/22 13:04 99 02/27/22 13:04 73 02/27/22 13:03 71 02/27/22 13:03 117/64 02/27/22 13:01 75 02/27/22 13:01 113/63 02/27/22 12:59 99 02/27/22 12:59 70 02/27/22 12:59 70 02/27/22 12:59 128/76 02/27/22 12:57 70 02/27/22 12:57 120/68 02/27/22 12:54 99 02/27/22 12:54 70 02/27/22 12:55 78 02/27/22 12:55 112/63 02/27/22 12:53 69 02/27/22 12:53 117/65 02/27/22 12:51 80 02/27/22 12:51 118/66 02/27/22 12:49 99 02/27/22 12:49 83 02/27/22 12:49 71 02/27/22 12:49 123/62 02/27/22 12:44 100 02/27/22 12:44 83 02/27/22 12:45 85 02/27/22 12:45 150/73 H 02/27/22 12:39 99 02/27/22 12:39 76 02/27/22 12:34 100 02/27/22 12:34 66 02/27/22 12:29 100 02/27/22 12:29 73 02/27/22 12:24 99 02/27/22 12:24 73 02/27/22 12:19 100 02/27/22 12:19 76 02/27/22 12:19 77 02/27/22 12:19 123/84 02/27/22 12:07 71 02/27/22 12:07 123/79 10/11/22 10:57 20 02/27/22 10:57 97.9 F 20 02/27/22 10:57 70 02/27/22 10:57 126/67 02/27/22 09:47 78 02/27/22 09:47 115/72 02/27/22 08:46 85 02/27/22 08:46 127/79 02/27/22 07:55 97 H 129/76 PG Care Time/CCT Total # of Minutes Spent Total Time Spent with Patient: Total time spent is greater than 50% in coordination of care (as documented) at patient's floor/unit and/or counseling patient: Coding Level of Care Code None
[2022-02-27] MEDS ORDERED: miSOPROStoL 200 MCG TAB ONE (20:44)
[2022-02-27] MEDS ORDERED: miSOPROStoL 200 MCG TAB PR ONE (21:00)
[2022-02-27] MEDS ORDERED: HYDROmorphone INJ 1 MG/ML SYRINGE IV PRN (21:46)
[2022-02-27] MEDS ORDERED: ATROPINE SULFATE 0.1 MG/ML 10ML SYR IV PRN (21:46)
[2022-02-27] MEDS ORDERED: PHENYLEPHRINE 100MCG/ML 5ML SYR IV PRN (21:46)
[2022-02-27] MEDS ORDERED: MEPERIDINE HCL 25 MG/ML CARP/VIAL IV PRN (21:46)
[2022-02-27] MEDS ORDERED: LABETALOL HCL IV 5 MG/ML 20ML IV PRN (21:46)
[2022-02-27] MEDS ORDERED: fentaNYL citrate 100 MCG/2 ML VIAL IV PRN (21:46)
--- NOTE | 2022-02-27 21:56 | Anesthesiology Consultation ---
Date of Service February 27, 2022 The had a labor epidural earlier today that was pulled after her delivery. She ate dinner at 1730. She has continued to have hemorrhage and will need to undergo emergent D and E. She was consented for general anesthesia. Assessment & Plan Chart Review Chart Review: Acceptable Risk for Surgery and Patient NOT seen in Pre Admission Testing Consults Requested none ASA [id number] Proposed Anesthesia Anesthesia Type: General Risk / Benefits Reviewed With: PT / POA / Parent / Guardian, Accepts Plan and Informed Consent Obtained History Surgery Operation Date: 02/27/22 22:00 Proposed Procedures p Dilation and Curettage - Perez Lopez MD, FACOG Height/Weight Height: 5 ft 6 in Weight: 102.058 kg Allergies Allergy/AdvReac Type Severity Reaction Status Date / Time Penicillins Allergy Hives Verified 02/27/22 14:38 Medications Home Medications Medication Instructions Recorded Confirmed Last Taken prenat.vits,freddy,vnu-gpyd-jktki 1 tab PO DAILY 07/17/21 02/27/22 Unknown cetirizine 10 mg capsule (Zyrtec) 10 mg PO DAILY PRN Acid Reflux 10/12/21 02/27/22 Unknown Active Medications Generic Name Dose Route Start Last Admin Trade Name Freq PRN Reason Stop Dose Admin Oxytocin 30 units in 500 mls @ 333.333 mls/hr 02/27/22 08:07 02/27/22 19:47 Pitocin IV 03/29/22 08:06 Infused .Q1H30M PRN Titration Bleeding Control Protocol 20 UNITS/HR Oxytocin 30 units in 500 mls @ 333 mls/hr 02/27/22 08:07 02/27/22 17:20 Pitocin IV 03/01/22 08:06 Infused .Q1H31M PRN Titration Labor Induction/Augmentation Protocol 19.98 UNITS/HR Lactated Ringer's 1,000 mls @ 125 mls/hr 02/27/22 08:07 02/27/22 19:47 Lr IV 03/01/22 08:06 125 mls/hr .Q8H PRN Infusion L&D Protocol Protocol Ibuprofen 600 mg 02/27/22 16:17 02/27/22 17:35 Ibuprofen 600 Mg Tab PO 03/29/22 16:16 600 mg Q4H PRN Administration Pain/BEGUM/Cramping/Fever NPO Date Last Intake of Fluids: 02/27/22 Time Last Intake of Fluids: 18:00 Date Last Intake of Solids: 02/27/22 Time Last Intake of Solids: 17:30 Past Medical History Medical History Blood pressure elevated without history of HTN 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, 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; opiod addiction; 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 GERD (gastroesophageal reflux disease) History of vaginal discharge Need for rhogam due to Rh negative mother Obese Screening, , for anatomic survey Supervision of normal first Varicella vaccination Exercise / Class Metabolic Activity II 4-5 Yardwork/Stairs/Walk up hill Past Family History Family History Mother Hypertension Aunt Deep vein thrombosis Denies family history of Ovarian cancer Breast cancer Colorectal cancer Past Surgical History Surgical History History of oral surgery History of umbilical hernia repair 5 years ago Past Anesthesia History No Hx of Anesthesia Complications and No Family Hx of Anesthesia Complications History of PONV No Hx of PONV and No Hx of Motion Sickness Social History Smoking Status: Never smoker tobacco type: cigarettes Hx Alcohol Use: No Alcohol type: wine alcohol intake frequency: a few times a month Hx Substance Use: No substance use type: marijuana and painkillers Substance Use Type Other:: oxycontin Last Used Substance: Days (ago) Last Used Substance Other:: 12 years ago Review of Systems no chest pain or sob Physical Exam Vital Signs Last Vital Signs Temp 37.1 C 02/27/22 19:49 Pulse 86 02/27/22 21:29 Resp 16 02/27/22 19:49 BP 135/82 02/27/22 21:29 Pulse Ox 99 02/27/22 19:49 O2 Del Method 02/27/22 19:49 ENMT Mouth: no TMJ abnormality Thyromental Distance: > or= 3.5 Finger Breadths Mallampati Class: II Neck normal visual inspection Respiratory normal respiratory effort Auscultation: lungs clear to auscultation bilaterally Cardiovascular Rate/Rhythm: regular rate and regular rhythm Musculoskeletal Spine: normal cervical ROM Neurologic moves all extremities Psychiatric Orientation: alert and oriented x 3 Testing Laboratory Results 02/27/22 08:13 Blood Type O Negative 02/27/22 08:13 Antibody Screen POSITIVE A 02/27/22 08:13
[2022-02-27] MEDS ORDERED: PROPOFOL IV EMULSION 10 MG/ML 20 ML VIAL IV ONE ×2 (21:58→22:30)
[2022-02-27 22:11] LABS: Hematocrit (blood only) 32.8 % (34.1-44.9); Hemoglobin 11.5 g/dl (12.0-16.0); Mean Corpuscular Hemoglobin 30.9 pg (25.0-34.0); Mean Corpuscular Hgb Conc 35.1 g/dL (32.0-36.0); Mean Corpuscular Volume 88.2 fL (80.0-100.0); Mean Platelet Volume 8.7 fL (9.4-12.3); Platelet Count 223 K/uL (130-400); RDW Coefficient of Variation 13.2 % (11.5-14.5); RDW Standard Deviation 42.6 fL (36.4-46.3); Red Blood Count 3.72 M/uL (3.93-5.22); White Blood Count 17.36 K/ul (4.8-10.8)
[2022-02-27] MEDS ORDERED: LIDOCAINE 2% MPF LOCAL 5 ML VIAL INFIL ONE (22:30)
[2022-02-27] MEDS ORDERED: DEXAMETHASONE SOD INJ 4 MG/ML VIAL ONE (22:30)
[2022-02-27] MEDS ORDERED: ONDANSETRON INJ 2 MG/ML 2 ML VIAL ONE (22:30)
[2022-02-27] MEDS ORDERED: SUCCINYLCHOLINE CHLORIDE 20 MG/ML 10 ML VIAL IV ONE (22:30)
[2022-02-27] MEDS ORDERED: OXYTOCIN 10 UNITS/ML 10ML VIAL ONE (22:30)
--- NOTE | 2022-02-27 22:58 | Operative Report ---
PG Post Operative Report Pre & Post Diagnosis Operation Date: 02/27/22 22:00 <No data on this case meets the specified criteria> I identified the patient and participated in the time-out.: Yes Procedure Operation Date: 02/27/22 22:00 <No data on this case meets the specified criteria> Surgeon Perez Lopez MD, FACOG [employer] . Estimated Blood Loss 300 Findings Consistent with Post-Op Diagnosis Specimens Products of conception placenta Description of Procedure The patient's bleeding failed to improve with conservative measures including Pitocin and attempted manual evacuation at the bedside of clots. Also with Cytotec. She was consented to the OR for examination under anesthesia and D&C. Patient consented risks were explained Patient was given a general anesthetic prepped and draped in dorsolithotomy position in yellowfin Demar stirrups Beasley catheter placed in her bladder we performed a exam under anesthesia manual exam of the uterus and there was retained products this was placenta that was firmly adherent to the anterior wall of the fundus a number of attempts were made by myself to cleave away the plane and actually get the placenta out 1 brief round of sharp curettage and then 1 less manual attempt to remove the placenta I felt that the stage were successful in removing all the placenta. Bleeding improved at this stage IV Pitocin was running with help with anesthesia The second-degree tear which had been disrupted was repaired with 3-0 Vicryl bleeding was excellent at the end of the procedure sponge instrument counts correct I attest to the content of the Intraoperative Record and any orders documented therein. Any exceptions are noted below. OB Procedure Charges 05394 PP Curettage
--- NOTE | 2022-02-27 23:11 | Anesthesiology Progress Note ---
Date of Service February 27, 2022 Anesthesia Post Procedure Vital Signs Vital Signs: Temp Pulse Pulse Resp BP BP Pulse Ox 02/27/22 19:49 37.1 C 76 16 116/70 99 02/27/22 17:07 20 02/27/22 16:52 20 02/27/22 16:37 20 02/27/22 18:30 20 02/27/22 17:22 20 02/27/22 16:22 20 02/27/22 08:02 36.6 C 20 02/27/22 23:07 100 02/27/22 23:07 103 H 02/27/22 23:02 99 02/27/22 23:02 112 H 02/27/22 23:02 135/86 02/27/22 21:29 86 02/27/22 21:29 135/82 02/27/22 20:59 94 H 02/27/22 20:59 108/72 02/27/22 20:29 82 02/27/22 20:29 110/63 02/27/22 19:59 82 02/27/22 19:59 115/71 02/27/22 19:48 76 02/27/22 19:48 116/70 02/27/22 19:29 90 02/27/22 19:29 106/72 02/27/22 19:24 73 02/27/22 19:24 139/68 02/27/22 18:58 68 02/27/22 18:58 89/50 L 02/27/22 18:57 111 H 02/27/22 18:57 86/47 L 02/27/22 18:49 100 H 02/27/22 18:49 106/56 L 02/27/22 18:34 100 H 02/27/22 18:34 109/61 02/27/22 18:19 98 H 02/27/22 18:19 113/71 02/27/22 18:04 106 H 02/27/22 18:04 118/76 02/27/22 17:49 88 02/27/22 17:49 122/76 02/27/22 17:34 77 02/27/22 17:34 122/67 02/27/22 17:19 75 02/27/22 17:19 126/68 02/27/22 17:04 62 02/27/22 17:04 122/70 02/27/22 16:49 71 02/27/22 16:49 116/62 02/27/22 16:34 126/67 02/27/22 16:22 85 02/27/22 16:22 131/69 02/27/22 16:04 98 02/27/22 16:04 87 02/27/22 16:04 137/63 02/27/22 15:59 100 02/27/22 16:00 88 L 02/27/22 15:59 82 02/27/22 16:00 95 H 02/27/22 15:54 99 02/27/22 15:54 80 02/27/22 15:49 100 02/27/22 15:49 78 02/27/22 15:49 119/67 02/27/22 15:44 98 02/27/22 15:44 76 02/27/22 15:39 98 02/27/22 15:39 75 02/27/22 15:15 20 02/27/22 15:15 20 02/27/22 15:31 20 02/27/22 15:31 20 02/27/22 15:34 98 02/27/22 15:34 75 02/27/22 15:34 115/68 02/27/22 15:29 98 02/27/22 15:29 81 02/27/22 15:24 98 02/27/22 15:24 81 02/27/22 15:19 97 02/27/22 15:19 82 02/27/22 15:19 112/65 02/27/22 15:14 99 02/27/22 15:14 77 02/27/22 15:09 98 02/27/22 15:09 67 02/27/22 14:45 20 02/27/22 14:45 20 02/27/22 15:01 20 02/27/22 15:01 20 02/27/22 15:04 98 02/27/22 15:04 65 02/27/22 15:04 110/61 02/27/22 14:59 97 02/27/22 14:59 70 02/27/22 14:54 97 02/27/22 14:54 71 02/27/22 14:49 97 02/27/22 14:49 85 02/27/22 14:49 110/65 02/27/22 14:44 97 02/27/22 14:44 82 02/27/22 14:39 97 02/27/22 14:39 64 02/27/22 14:34 97 02/27/22 14:34 70 02/27/22 14:34 65 02/27/22 14:34 122/64 02/27/22 14:31 20 02/27/22 14:31 20 02/27/22 13:31 16 02/27/22 13:31 16 02/27/22 14:29 97 02/27/22 14:29 68 02/27/22 13:45 20 02/27/22 13:45 20 02/27/22 14:24 98 02/27/22 14:24 65 02/27/22 14:19 98 02/27/22 14:19 63 02/27/22 14:20 63 02/27/22 14:20 120/71 02/27/22 14:14 98 02/27/22 14:14 77 02/27/22 14:09 96 02/27/22 14:09 65 02/27/22 14:04 98 02/27/22 14:04 64 02/27/22 14:04 121/68 02/27/22 14:00 20 02/27/22 14:00 20 02/27/22 13:59 97 02/27/22 13:59 64 02/27/22 13:54 98 02/27/22 13:54 64 02/27/22 13:51 62 02/27/22 13:51 118/66 02/27/22 13:49 98 02/27/22 13:49 63 02/27/22 13:44 98 02/27/22 13:44 62 02/27/22 13:39 98 02/27/22 13:39 71 02/27/22 13:35 61 02/27/22 13:35 126/70 02/27/22 13:34 98 02/27/22 13:34 68 02/27/22 13:20 20 02/27/22 13:20 36.7 C 20 02/27/22 13:29 99 02/27/22 13:29 66 02/27/22 13:24 94 02/27/22 13:24 71 02/27/22 13:21 87 02/27/22 13:21 116/73 02/27/22 13:19 98 02/27/22 13:19 64 02/27/22 13:17 63 02/27/22 13:17 107/65 02/27/22 13:15 60 02/27/22 13:15 111/65 02/27/22 13:14 100 02/27/22 13:14 67 02/27/22 13:05 20 02/27/22 13:05 20 02/27/22 13:13 68 02/27/22 13:13 108/64 02/27/22 13:11 78 02/27/22 13:11 102/63 02/27/22 13:09 98 02/27/22 13:09 66 02/27/22 13:09 106/64 02/27/22 13:07 65 02/27/22 13:07 115/66 02/27/22 13:05 80 02/27/22 13:05 116/64 02/27/22 13:04 99 02/27/22 13:04 73 02/27/22 13:03 71 02/27/22 13:03 117/64 02/27/22 13:01 75 02/27/22 13:01 113/63 02/27/22 12:59 99 02/27/22 12:59 70 02/27/22 12:59 70 02/27/22 12:59 128/76 02/27/22 12:57 70 02/27/22 12:57 120/68 02/27/22 12:54 99 02/27/22 12:54 70 02/27/22 12:55 78 02/27/22 12:55 112/63 02/27/22 12:53 69 02/27/22 12:53 117/65 02/27/22 12:51 80 02/27/22 12:51 118/66 02/27/22 12:49 99 02/27/22 12:49 83 02/27/22 12:49 71 02/27/22 12:49 123/62 02/27/22 12:44 100 02/27/22 12:44 83 02/27/22 12:45 85 02/27/22 12:45 150/73 H 02/27/22 12:39 99 02/27/22 12:39 76 02/27/22 12:34 100 02/27/22 12:34 66 02/27/22 12:29 100 02/27/22 12:29 73 02/27/22 12:24 99 02/27/22 12:24 73 02/27/22 12:19 100 02/27/22 12:19 76 02/27/22 12:19 77 02/27/22 12:19 123/84 02/27/22 12:07 71 02/27/22 12:07 123/79 02/27/22 10:57 20 02/27/22 10:57 36.6 C 20 02/27/22 10:57 70 02/27/22 10:57 126/67 02/27/22 09:47 78 02/27/22 09:47 115/72 02/27/22 08:46 85 02/27/22 08:46 127/79 02/27/22 07:55 97 H 129/76 O2 Del Method 02/27/22 19:49 Room Air 02/27/22 17:07 02/27/22 16:52 02/27/22 16:37 02/27/22 18:30 02/27/22 17:22 02/27/22 16:22 02/27/22 08:02 02/27/22 23:07 02/27/22 23:07 02/27/22 23:02 02/27/22 23:02 02/27/22 23:02 02/27/22 21:29 02/27/22 21:29 02/27/22 20:59 02/27/22 20:59 02/27/22 20:29 02/27/22 20:29 02/27/22 19:59 02/27/22 19:59 02/27/22 19:48 02/27/22 19:48 02/27/22 19:29 02/27/22 19:29 02/27/22 19:24 02/27/22 19:24 02/27/22 18:58 02/27/22 18:58 02/27/22 18:57 02/27/22 18:57 02/27/22 18:49 02/27/22 18:49 02/27/22 18:34 02/27/22 18:34 02/27/22 18:19 02/27/22 18:19 02/27/22 18:04 02/27/22 18:04 02/27/22 17:49 02/27/22 17:49 02/27/22 17:34 02/27/22 17:34 02/27/22 17:19 02/27/22 17:19 02/27/22 17:04 02/27/22 17:04 02/27/22 16:49 02/27/22 16:49 02/27/22 16:34 02/27/22 16:22 02/27/22 16:22 02/27/22 16:04 02/27/22 16:04 02/27/22 16:04 02/27/22 15:59 02/27/22 16:00 02/27/22 15:59 02/27/22 16:00 02/27/22 15:54 02/27/22 15:54 02/27/22 15:49 02/27/22 15:49 02/27/22 15:49 02/27/22 15:44 02/27/22 15:44 02/27/22 15:39 02/27/22 15:39 02/27/22 15:15 02/27/22 15:15 02/27/22 15:31 02/27/22 15:31 02/27/22 15:34 02/27/22 15:34 02/27/22 15:34 02/27/22 15:29 02/27/22 15:29 02/27/22 15:24 02/27/22 15:24 02/27/22 15:19 02/27/22 15:19 02/27/22 15:19 02/27/22 15:14 02/27/22 15:14 02/27/22 15:09 02/27/22 15:09 02/27/22 14:45 02/27/22 14:45 02/27/22 15:01 02/27/22 15:01 02/27/22 15:04 02/27/22 15:04 02/27/22 15:04 02/27/22 14:59 02/27/22 14:59 02/27/22 14:54 02/27/22 14:54 02/27/22 14:49 02/27/22 14:49 02/27/22 14:49 02/27/22 14:44 02/27/22 14:44 02/27/22 14:39 02/27/22 14:39 02/27/22 14:34 02/27/22 14:34 02/27/22 14:34 02/27/22 14:34 02/27/22 14:31 02/27/22 14:31 02/27/22 13:31 02/27/22 13:31 02/27/22 14:29 02/27/22 14:29 02/27/22 13:45 02/27/22 13:45 02/27/22 14:24 02/27/22 14:24 02/27/22 14:19 02/27/22 14:19 02/27/22 14:20 02/27/22 14:20 02/27/22 14:14 02/27/22 14:14 02/27/22 14:09 02/27/22 14:09 02/27/22 14:04 02/27/22 14:04 02/27/22 14:04 02/27/22 14:00 02/27/22 14:00 02/27/22 13:59 02/27/22 13:59 02/27/22 13:54 02/27/22 13:54 02/27/22 13:51 02/27/22 13:51 02/27/22 13:49 02/27/22 13:49 02/27/22 13:44 02/27/22 13:44 02/27/22 13:39 02/27/22 13:39 02/27/22 13:35 02/27/22 13:35 02/27/22 13:34 02/27/22 13:34 02/27/22 13:20 02/27/22 13:20 02/27/22 13:29 02/27/22 13:29 02/27/22 13:24 02/27/22 13:24 02/27/22 13:21 02/27/22 13:21 02/27/22 13:19 02/27/22 13:19 02/27/22 13:17 02/27/22 13:17 02/27/22 13:15 02/27/22 13:15 02/27/22 13:14 02/27/22 13:14 02/27/22 13:05 02/27/22 13:05 02/27/22 13:13 02/27/22 13:13 02/27/22 13:11 02/27/22 13:11 02/27/22 13:09 02/27/22 13:09 02/27/22 13:09 02/27/22 13:07 02/27/22 13:07 02/27/22 13:05 02/27/22 13:05 02/27/22 13:04 02/27/22 13:04 02/27/22 13:03 02/27/22 13:03 02/27/22 13:01 02/27/22 13:01 02/27/22 12:59 02/27/22 12:59 02/27/22 12:59 02/27/22 12:59 02/27/22 12:57 02/27/22 12:57 02/27/22 12:54 02/27/22 12:54 02/27/22 12:55 02/27/22 12:55 02/27/22 12:53 02/27/22 12:53 02/27/22 12:51 02/27/22 12:51 02/27/22 12:49 02/27/22 12:49 02/27/22 12:49 02/27/22 12:49 02/27/22 12:44 02/27/22 12:44 02/27/22 12:45 02/27/22 12:45 02/27/22 12:39 02/27/22 12:39 02/27/22 12:34 02/27/22 12:34 02/27/22 12:29 02/27/22 12:29 02/27/22 12:24 02/27/22 12:24 02/27/22 12:19 02/27/22 12:19 02/27/22 12:19 02/27/22 12:19 02/27/22 12:07 02/27/22 12:07 02/27/22 10:57 02/27/22 10:57 02/27/22 10:57 02/27/22 10:57 02/27/22 09:47 02/27/22 09:47 02/27/22 08:46 02/27/22 08:46 02/27/22 07:55 Transfer of Care Handoff Completed per policy Notes Mental Status: alert / awake / arousable Patient Amnestic to Procedure: Yes Nausea / Vomiting: adequately controlled Pain: adequately controlled Airway Patency, RR, SpO2: stable & adequate BP & HR: stable & adequate Hydration State: stable & adequate Anesthetic Complications: no major complications apparent and Pt Satisfied with anesthetic care Notes: The patient is awake and comfortable. Her vital signs are stable.
[2022-02-27] MEDS ORDERED: LACTATED RINGER'S 1,000 ML IV SCH (23:30)
[2022-02-27] MEDS: OXYTOCIN 20 UNITS in LACTATED RINGER'S 1,000 ML IV SCH (23:59)
[2022-02-28] MEDS: DOCUSATE SODIUM 100 MG CAP PO SCH ×3 (04:14→20:35)
--- NOTE | 2022-02-28 05:59 | Obstetrical Progress Note ---
Date of Service February 28, 2022 Feeling much better her bleeding is minimal Assessment & Plan (1) hemorrhage: She is day #1 her bleeding has resolved she had retained placenta was extracted in the OR. Reviewed again with the patient. Her bleeding is minimal and review her catheter status and likely remove CBC this morning Subjective Ambulation: limited ambulation Voiding: green catheter in place Results & Data ([facility]) Vital Signs (Past 12 Hours) Vital Signs Temp Pulse Pulse Resp BP BP Pulse Ox 02/28/22 00:00 18 02/27/22 23:45 18 02/27/22 23:30 18 02/27/22 23:15 18 02/28/22 01:00 98.6 F 18 02/28/22 00:16 18 02/27/22 23:00 98.6 F 18 02/27/22 19:49 98.8 F 76 16 116/70 99 02/27/22 18:30 20 02/28/22 04:54 87 113/64 02/28/22 01:01 95 H 137/82 02/28/22 01:00 98 H 97 02/28/22 00:47 74 98 02/28/22 00:42 75 98 02/28/22 00:37 75 98 02/28/22 00:32 75 99 02/28/22 00:27 79 98 02/28/22 00:24 80 115/71 02/28/22 00:22 74 107/63 98 02/28/22 00:17 79 98 02/28/22 00:12 98 02/28/22 00:12 85 02/28/22 00:12 78 116/70 02/28/22 00:07 85 99 02/28/22 00:02 90 116/77 96 02/27/22 23:57 99 02/27/22 23:57 91 H 02/27/22 23:57 85 02/27/22 23:57 123/57 L 02/27/22 23:52 99 02/27/22 23:52 82 02/27/22 23:52 124/89 02/27/22 23:51 94 02/27/22 23:51 90 02/27/22 23:47 97 02/27/22 23:47 85 02/27/22 23:42 99 02/27/22 23:42 82 02/27/22 23:42 87 02/27/22 23:42 124/82 02/27/22 23:40 90 02/27/22 23:40 118 H 02/27/22 23:37 96 02/27/22 23:37 89 02/27/22 23:32 98 02/27/22 23:32 88 02/27/22 23:32 124/68 02/27/22 23:27 100 02/27/22 23:27 128 H 02/27/22 23:22 98 02/27/22 23:22 99 H 02/27/22 23:22 160/74 H 02/27/22 23:17 99 02/27/22 23:17 105 H 02/27/22 23:14 105 H 02/27/22 23:14 148/86 H 02/27/22 23:12 98 02/27/22 23:12 131 H 02/27/22 23:13 139 H 02/27/22 23:13 164/110 H 02/27/22 23:07 100 02/27/22 23:07 103 H 02/27/22 23:02 99 02/27/22 23:02 112 H 02/27/22 23:02 135/86 02/27/22 21:29 86 02/27/22 21:29 135/82 02/27/22 20:59 94 H 02/27/22 20:59 108/72 02/27/22 20:29 82 02/27/22 20:29 110/63 02/27/22 19:59 82 02/27/22 19:59 115/71 02/27/22 19:48 76 02/27/22 19:48 116/70 02/27/22 19:29 90 02/27/22 19:29 106/72 02/27/22 19:24 73 02/27/22 19:24 139/68 02/27/22 18:58 68 02/27/22 18:58 89/50 L 02/27/22 18:57 111 H 02/27/22 18:57 86/47 L 02/27/22 18:49 100 H 02/27/22 18:49 106/56 L 02/27/22 18:34 100 H 02/27/22 18:34 109/61 02/27/22 18:19 98 H 02/27/22 18:19 113/71 02/27/22 18:04 106 H 02/27/22 18:04 118/76 O2 Del Method 02/28/22 00:00 02/27/22 23:45 02/27/22 23:30 02/27/22 23:15 02/28/22 01:00 02/28/22 00:16 02/27/22 23:00 02/27/22 19:49 Room Air 02/27/22 18:30 02/28/22 04:54 02/28/22 01:01 02/28/22 01:00 02/28/22 00:47 02/28/22 00:42 02/28/22 00:37 02/28/22 00:32 02/28/22 00:27 02/28/22 00:24 02/28/22 00:22 02/28/22 00:17 02/28/22 00:12 02/28/22 00:12 02/28/22 00:12 02/28/22 00:07 02/28/22 00:02 02/27/22 23:57 02/27/22 23:57 02/27/22 23:57 02/27/22 23:57 02/27/22 23:52 02/27/22 23:52 02/27/22 23:52 02/27/22 23:51 02/27/22 23:51 02/27/22 23:47 02/27/22 23:47 02/27/22 23:42 02/27/22 23:42 02/27/22 23:42 02/27/22 23:42 02/27/22 23:40 02/27/22 23:40 02/27/22 23:37 02/27/22 23:37 02/27/22 23:32 02/27/22 23:32 02/27/22 23:32 02/27/22 23:27 02/27/22 23:27 02/27/22 23:22 02/27/22 23:22 02/27/22 23:22 02/27/22 23:17 02/27/22 23:17 02/27/22 23:14 02/27/22 23:14 02/27/22 23:12 02/27/22 23:12 02/27/22 23:13 02/27/22 23:13 02/27/22 23:07 02/27/22 23:07 02/27/22 23:02 02/27/22 23:02 02/27/22 23:02 02/27/22 21:29 02/27/22 21:29 02/27/22 20:59 02/27/22 20:59 02/27/22 20:29 02/27/22 20:29 02/27/22 19:59 02/27/22 19:59 02/27/22 19:48 02/27/22 19:48 02/27/22 19:29 02/27/22 19:29 02/27/22 19:24 02/27/22 19:24 02/27/22 18:58 02/27/22 18:58 02/27/22 18:57 02/27/22 18:57 02/27/22 18:49 02/27/22 18:49 02/27/22 18:34 02/27/22 18:34 02/27/22 18:19 02/27/22 18:19 02/27/22 18:04 02/27/22 18:04
[2022-02-28] MEDS: IBUPROFEN 600 MG TAB PO PRN ×4 (06:10→22:17)
--- NOTE | 2022-02-28 06:19 | Obstetrical Progress Note ---
Date of Service <Elizabeth Jay DO - Last Filed: 02/28/22 06:47> February 28, 2022 Assessment & Plan <Elizabeth Jay DO - Last Filed: 02/28/22 06:47> (1) care following vaginal delivery: Patient is PPD 1 s/p and doing well. - Eating well, voiding well, ambulating well - Vitals reviewed and within normal limits. Hgb 9.6 this AM - Pain well controlled with analgesics - OOB, ambulation, diet progression as tolerated this AM - Blood type: O-, GBS pos (adequately treated), rubella immune - After discharge, 6 week follow up with Dr. Lopez (2) Need for rhogam due to Rh negative mother: - will receive rhogam before d/c (3) Carrier of group B Streptococcus: - adequately treated in labor (4) hemorrhage: - Hgb 9.6 this AM - stable <Perez Lopez MD, FACOG - Last Filed: 02/28/22 07:22> (1) care following vaginal delivery: (2) Need for rhogam due to Rh negative mother: (3) Carrier of group B Streptococcus: (4) hemorrhage: Subjective <Elizabeth Jay DO - Last Filed: 02/28/22 06:47> Patient is a 31 yo female who is now PPD #1 following spontaneous vaginal delivery at 40 weeks. Reports feeling well this morning. She endorses abdominal cramping and 2-3/10 pain well managed on analgesics. She was catheterized last night after being in the OR to extract retained placenta from the uterus. Her catheter has just been removed this AM. She ate a little bit of dinner last night but hasn't eaten since. She has been hydrating well. She has not been up to walk d/t catheter placement. Per pt, her bleeding has decreased since last night. Currently bottle feeding. Review of Systems Denies fever, chills, sweats. Denies SOB, difficulty breathing, chest pain, palpitations, and chest pressure. Denies breast pain. Denies dysuria. Denies headache or changes in vision. Physical Exam <Elizabeth Jay DO - Last Filed: 02/28/22 06:47> General: Alert and oriented. No acute distress. CV: Regular rate and rhythm. No murmurs. Respiratory: CTA bilaterally. No rhonchi, wheezes, or crackles. No increased work of breathing. Abdomen: Positive bowel sounds. Soft, nontender, non distended. Uterus: Fundus firm and palpable 3 cm below the umbilicus. Lower extremities: SCDs on bilaterally and functioning. Minimal, nonpitting edema in feet R>L. Results & Data ([facility]) <Elizabeth Jay, - Last Filed: 02/28/22 06:47> Vital Signs (Past 12 Hours) Vital Signs Temp Pulse Pulse Resp BP BP Pulse Ox 02/28/22 00:00 18 02/27/22 23:45 18 02/27/22 23:30 18 02/27/22 23:15 18 02/28/22 01:00 37.0 C 18 02/28/22 00:16 18 02/27/22 23:00 37.0 C 18 02/27/22 19:49 37.1 C 76 16 116/70 99 02/27/22 18:30 20 02/28/22 04:54 87 113/64 02/28/22 01:01 95 H 137/82 02/28/22 01:00 98 H 97 02/28/22 00:47 74 98 02/28/22 00:42 75 98 02/28/22 00:37 75 98 02/28/22 00:32 75 99 02/28/22 00:27 79 98 02/28/22 00:24 80 115/71 02/28/22 00:22 74 107/63 98 02/28/22 00:17 79 98 02/28/22 00:12 98 02/28/22 00:12 85 02/28/22 00:12 78 116/70 02/28/22 00:07 85 99 02/28/22 00:02 90 116/77 96 02/27/22 23:57 99 02/27/22 23:57 91 H 02/27/22 23:57 85 02/27/22 23:57 123/57 L 02/27/22 23:52 99 02/27/22 23:52 82 02/27/22 23:52 124/89 02/27/22 23:51 94 02/27/22 23:51 90 02/27/22 23:47 97 02/27/22 23:47 85 02/27/22 23:42 99 02/27/22 23:42 82 02/27/22 23:42 87 02/27/22 23:42 124/82 02/27/22 23:40 90 02/27/22 23:40 118 H 02/27/22 23:37 96 02/27/22 23:37 89 02/27/22 23:32 98 02/27/22 23:32 88 02/27/22 23:32 124/68 02/27/22 23:27 100 02/27/22 23:27 128 H 02/27/22 23:22 98 02/27/22 23:22 99 H 02/27/22 23:22 160/74 H 02/27/22 23:17 99 02/27/22 23:17 105 H 02/27/22 23:14 105 H 02/27/22 23:14 148/86 H 02/27/22 23:12 98 02/27/22 23:12 131 H 02/27/22 23:13 139 H 02/27/22 23:13 164/110 H 02/27/22 23:07 100 02/27/22 23:07 103 H 02/27/22 23:02 99 02/27/22 23:02 112 H 02/27/22 23:02 135/86 02/27/22 21:29 86 02/27/22 21:29 135/82 02/27/22 20:59 94 H 02/27/22 20:59 108/72 02/27/22 20:29 82 02/27/22 20:29 110/63 02/27/22 19:59 82 02/27/22 19:59 115/71 02/27/22 19:48 76 02/27/22 19:48 116/70 02/27/22 19:29 90 02/27/22 19:29 106/72 02/27/22 19:24 73 02/27/22 19:24 139/68 02/27/22 18:58 68 02/27/22 18:58 89/50 L 02/27/22 18:57 111 H 02/27/22 18:57 86/47 L 02/27/22 18:49 100 H 02/27/22 18:49 106/56 L 02/27/22 18:34 100 H 02/27/22 18:34 109/61 02/27/22 18:19 98 H 02/27/22 18:19 113/71 O2 Del Method 02/28/22 00:00 02/27/22 23:45 02/27/22 23:30 02/27/22 23:15 02/28/22 01:00 02/28/22 00:16 02/27/22 23:00 02/27/22 19:49 Room Air 02/27/22 18:30 02/28/22 04:54 02/28/22 01:01 02/28/22 01:00 02/28/22 00:47 02/28/22 00:42 02/28/22 00:37 02/28/22 00:32 02/28/22 00:27 02/28/22 00:24 02/28/22 00:22 02/28/22 00:17 02/28/22 00:12 02/28/22 00:12 02/28/22 00:12 02/28/22 00:07 02/28/22 00:02 02/27/22 23:57 02/27/22 23:57 02/27/22 23:57 02/27/22 23:57 02/27/22 23:52 02/27/22 23:52 02/27/22 23:52 02/27/22 23:51 02/27/22 23:51 02/27/22 23:47 02/27/22 23:47 02/27/22 23:42 02/27/22 23:42 02/27/22 23:42 02/27/22 23:42 02/27/22 23:40 02/27/22 23:40 02/27/22 23:37 02/27/22 23:37 02/27/22 23:32 02/27/22 23:32 02/27/22 23:32 02/27/22 23:27 02/27/22 23:27 02/27/22 23:22 02/27/22 23:22 02/27/22 23:22 02/27/22 23:17 02/27/22 23:17 02/27/22 23:14 02/27/22 23:14 02/27/22 23:12 02/27/22 23:12 02/27/22 23:13 02/27/22 23:13 02/27/22 23:07 02/27/22 23:07 02/27/22 23:02 02/27/22 23:02 02/27/22 23:02 02/27/22 21:29 02/27/22 21:29 02/27/22 20:59 02/27/22 20:59 02/27/22 20:29 02/27/22 20:29 02/27/22 19:59 02/27/22 19:59 02/27/22 19:48 02/27/22 19:48 02/27/22 19:29 02/27/22 19:29 02/27/22 19:24 02/27/22 19:24 02/27/22 18:58 02/27/22 18:58 02/27/22 18:57 02/27/22 18:57 02/27/22 18:49 02/27/22 18:49 02/27/22 18:34 02/27/22 18:34 02/27/22 18:19 02/27/22 18:19 <Perez Lopez MD, FACOG - Last Filed: 02/28/22 07:22> Co-Signing Physician Notes Resident Physician Supervision Note: I was present with [Name of resident] during the history and exam. I discussed the case with the resident and agree with the findings and plan as documented in the note. Any exceptions or clarifications are listed here: [None] Documented By: Perez Lopez MD, FACOG Resident Activity Tracking <Elizabeth Jay DO - Last Filed: 02/28/22 06:47> Resident Involvement: Resident Care Provided Care Provided: OB Delivery
[2022-02-28 06:25] LABS: Hematocrit (blood only) 27.4 % (34.1-44.9); Hemoglobin 9.6 g/dl (12.0-16.0); Mean Corpuscular Volume 88.4 fL (80.0-100.0); Mean Platelet Volume 8.9 fL (9.4-12.3); Platelet Count 209 K/uL (130-400); RDW Coefficient of Variation 13.4 % (11.5-14.5); RDW Standard Deviation 43.4 fL (36.4-46.3); White Blood Count 18.09 K/ul (4.8-10.8)
[2022-02-28] MEDS ORDERED: COUGH DROP (SUGAR FREE) LOZ 24 LOZ/1 BOX BUCCAL PRN (07:44)
[2022-02-28] MEDS: PRENATAL VITAMIN 1 TAB PO SCH (07:59)
[2022-02-28] MEDS ORDERED: ceFAZolin 2000MG 2,000 MG/15 ML SYR IV ONE (08:00)
[2022-02-28] MEDS: OXYTOCIN 20 UNITS in LACTATED RINGER'S 1,000 ML IV SCH (08:41)
[2022-02-28] MEDS ORDERED: bisacodyL 5 MG TABEC PO SCH (20:00)
--- NOTE | 2022-03-01 05:34 | Obstetrical Progress Note ---
Date of Service <Elizabeth Jay DO - Last Filed: 03/01/22 06:14> March 01, 2022 Assessment & Plan <Elizabeth Jay DO - Last Filed: 03/01/22 06:14> (1) care following vaginal delivery: Patient is PPD 2 s/p complicated by PPH. She is doing well today. - Eating well, voiding well, ambulating well - Vitals reviewed and within normal limits - Pain well controlled with analgesics - OOB, ambulation, diet progression as tolerated - Blood type: O- (baby is A-), GBS pos (adequately treated), rubella immune - Plan to discharge today - After discharge, 6 week follow up with Dr. Lopez (2) hemorrhage: - stable (3) Carrier of group B Streptococcus: - adequately treated during labor <Kassidy Villagomez MD - Last Filed: 03/01/22 07:17> (1) care following vaginal delivery: (2) hemorrhage: (3) Carrier of group B Streptococcus: Subjective <Elizabeth Jay DO - Last Filed: 03/01/22 06:14> Patient is a 31 yo female who is now PPD #2 following spontaneous vaginal delivery at 40 weeks. Reports feeling well this morning. She endorses abdominal cramping and feeling swollen in her perineum. She describes 2/10 pain well managed on analgesics. Voiding without issue. Tolerating regular meals overnight and able to ambulate some. She has passed gas but no bowel movements. Persistent lochia with improvement throughout yesterday and into today. Currently bottle feeding. Review of Systems Denies fever, chills, sweats. Denies SOB, difficulty breathing, chest pain, palpitations, and chest pressure. Denies breast pain. Denies dysuria. Denies headache or changes in vision. Physical Exam <Elizabeth Jay DO - Last Filed: 03/01/22 06:14> General: Alert and oriented. No acute distress. CV: Regular rate and rhythm. No murmurs. Respiratory: CTA bilaterally. No rhonchi, wheezes, or crackles. No increased work of breathing. Abdomen: Positive bowel sounds. Soft, nontender, non distended. Uterus: Fundus firm and palpable 3 cm below the umbilicus. Lower extremities: Minimal, non pitting edema in bilateral feet R>L. No deep calf pain. Sy's negative bilaterally. Results & Data ([facility]) <Elizabeth Jay DO - Last Filed: 03/01/22 06:14> Vital Signs (Past 12 Hours) Vital Signs Temp Pulse Resp BP BP Pulse Ox O2 Del Method 02/28/22 23:45 36.7 C 76 16 110/73 99 Room Air 02/28/22 20:09 37.0 C 85 18 104/69 98 Room Air <Kassidy Villagomez MD - Last Filed: 03/01/22 07:17> Co-Signing Physician Notes Resident Physician Supervision Note: I interviewed and examined the patient. Discussed with Dr. Jay and agree with findings and plan as documented in the note. Any exceptions or clarifications are listed here: [ ] Documented By: Kassidy Villagomez MD, FACOG Resident Activity Tracking <Elizabeth Jay DO - Last Filed: 03/01/22 06:14> Resident Involvement: Resident Care Provided Care Provided: OB Delivery
[2022-03-01] MEDS: DOCUSATE SODIUM 100 MG CAP PO SCH (07:35)
[2022-03-01] MEDS: PRENATAL VITAMIN 1 TAB PO SCH (07:35)
[2022-03-01] MEDS: IBUPROFEN 600 MG TAB PO PRN (07:36)
== END 2022-03-01 13:05 | disposition home or self-care (01) | DRG 797 ==
LOC: 4S1 07:42 → 4E2 02-28 06:08

== ENCOUNTER 2022-03-06 15:23 | Inpatient (IN) ==
--- NOTE | 2022-03-06 15:40 | ED Triage Note ---
Date of Service March 06, 2022 History of Present Illness This patient was briefly evaluated while in triage. An abbreviated physical exam was performed. This patient is a 31-year-old Female that presents to the ED today for evaluation of elevated blood pressure. She notes chest pressure described as "el ephant on chest". She is one week post . She was sent by OB department. Thought indigestion and today worsening headache. She follow with [facility]. She was seen today by Dr. Braun. Physical Exam GENERAL: 31 year old female. In no acute distress. SKIN: No lesions or rashes. HEART: Regular rate and rhythm. LUNGS: Clear to auscultation. ABDOMEN: Bowel sounds normoactive. No guarding or rigidity. No tenderness of palpation. NEURO: Alert and oriented. No deficits. MUSCULOSKELETAL: No deformities to inspection of the extremities. PSYCH: Patient is pleasant and answers all questions appropriately. Initial orders for labs and / or imaging were placed and patient was placed in the waiting area until a bed is available. Please see further documentation for the full ED course.
[2022-03-06 16:13] LABS: Basophils # (auto) 0.05 K/uL (0-0.2); Basophils % (auto) 0.5 %; Eosinophils # (auto) 0.21 K/uL (0-0.50); Eosinophils % (auto) 2.2 %; Hematocrit (blood only) 27.6 % (34.1-44.9); Hemoglobin 9.3 g/dl (12.0-16.0); Immature Granulocytes # (auto) 0.18 K/uL (0.00-0.02); Immature Granulocytes % (auto) 1.9 %; Lymphocytes # (auto) 2.81 K/uL (1.2-3.4); Lymphocytes % (auto) 30.1 %; Mean Corpuscular Hemoglobin 30.8 pg (25.0-34.0); Mean Corpuscular Hgb Conc 33.7 g/dL (32.0-36.0); Mean Corpuscular Volume 91.4 fL (80.0-100.0); Mean Platelet Volume 8.9 fL (9.4-12.3); Monocytes # (auto) 0.51 K/uL (0.24-0.82); Monocytes % (auto) 5.5 %; Neutrophils # (auto) 5.58 K/uL (1.4-6.5); Neutrophils % (auto) 59.8 %; Nucleated RBC # (auto) 0.02 K/uL (0-0); Nucleated RBC % (auto) 0.2 %; Platelet Count 340 K/uL (130-400); RDW Coefficient of Variation 13.5 % (11.5-14.5); RDW Standard Deviation 44.2 fL (36.4-46.3); Red Blood Count 3.02 M/uL (3.93-5.22); White Blood Count 9.34 K/ul (4.8-10.8)
[2022-03-06 16:25] LABS: Partial Thromboplastin Ratio 0.9; Partial Thromboplastin Time 24.4 Seconds (21.0-31.0); Prothrombin Time 10.2 Seconds (9.0-12.0)
[2022-03-06 16:28] LABS: Appearance Urine Clear (Clear); Bacteria Urine Automated Negative (Negative); Bilirubin Urine Negative (Negative); Blood Urine 3+ (Negative); Color Urine Yellow; Glucose Urine UA Negative (Negative); Ketones Urine Trace (Negative); Leukocyte Esterase Urine 2+ (Negative); Nitrite Urine Negative (Negative); Protein Urine Trace (Negative); RBC Urine Automated >30 /hpf (0-4); Specific Gravity Urine 1.028 (1.000-1.030); Urobilinogen Urine Negative (Negative); WBC Urine Automated >30 /hpf (0-5)
[2022-03-06 16:37] LABS: Albumin Globulin Ratio 1.2 (0.9-2); Albumin Level 3.7 gm/dl (3.4-5.0); BUN Creatinine Ratio 24.6 (10-20); Bilirubin,Total 0.3 mg/dl (0.2-1.0); Calcium 8.9 mg/dl (8.5-10.1); Creatinine Clr Calc Pharmacy 136.3 ml/min; Est GFR (African American) 133.5 ml/min; Est GFR (Non-African American) 115.2 ml/min; Magnesium 1.8 mg/dl (1.7-2.4); Total Protein 6.7 gm/dl (6.0-8.3)
[2022-03-06 16:40] LABS: Troponin I High Sensitivity 8.1 pg/ml (0-14)
--- NOTE | 2022-03-06 20:18 | Emergency Department Note ---
Impression & Plan Pre-eclampsia in period, Edema, peripheral, Chest pain, Anemia ED Provider Note NAME: JOVANNA URIARTE AGE: 31 SEX: F : 1990 ARRIVES VIA: Walk-In INFORMANT: Patient, ED PROVIDER(S): Sheila Eckert DO CHIEF COMPLAINT: Chest pain HPI: The patient is a 31-year-old female who is 1 week status post vaginal delivery who presented to the emergency department at the request of her SIGN BUILDER physician for an evaluation of shortness of breath and chest pain. The patient states that she was seen by her SIGN BUILDER physician and referred to the emergency department for preeclampsia. She has no history of preeclampsia. She had a normal vaginal delivery. She has noticed some vaginal bleeding but it is improving since the delivery. She denies having any cough. She does complain of pressure on her chest as well as difficulty breathing. She notices swelling in her legs but no swelling in her hands. Her previous was not complicated by preeclampsia. She states that she has been compliant with her outpatient medications otherwise. ROS: See above HPI for pertinent positives & negatives. A total of 10 systems reviewed and were otherwise negative. PAST MEDICAL HISTORY: See Below PAST SURGICAL HISTORY: See Below FAMILY HISTORY: See Below SOCIAL HISTORY: See Below HOME MEDICATIONS: See Below ALLERGIES: See Below VITALS: See Below PHYSICAL EXAMINATION: GENERAL: Patient is awake alert in no acute distress patient is resting comfortably and showing no signs of anxiety EYES: The conjunctivae are clear. The pupils are round and reactive. EARS, NOSE, MOUTH AND THROAT: The nose is without any evidence of any deformity. Mucous membranes are moist. Tongue is midline. NECK: The neck is nontender and supple. RESPIRATORY: Diminished breath sounds are noted at both bases. There were no rales rhonchi or wheezing. CARDIOVASCULAR: Regular rate and rhythm noted there no murmurs rubs or gallops normal S1 normal S2. GASTROINTESTINAL: The abdomen is soft and mildly distended. There is no tenderness guarding rigidity. MUSCULOSKELETAL/EXTREMITIES: There is no evidence of gross deformity full range of motion is noted in the hips and shoulders. SKIN: Pedal edema was noted bilaterally. Pulses were symmetric in both feet. NEUROLOGIC: Patient is awake alert and oriented x3. MEDICAL DECISION MAKING: The patient is a 31-year-old female who presented to the emergency department for an evaluation of chest pain. The patient was noted to have elevated blood pressure and is in the age. The patient was treated with IV m agnesium in the emergency department. She was reevaluated multiple times. I discussed the patient's laboratory and radiographic studies with her. I also discussed her case with the on-call [facility] SIGN BUILDER physician. They did recommend a CT of the chest as earlier when they were evaluated they were felt to be at risk for pulmonary embolism. This test was ordered. It did not reveal any signs of venous thromboembolic disease. The patient was evaluated in the emergency department by the SIGN BUILDER physician and felt to be a good candidate for inpatient management for preeclampsia. She was taken to the OB floor for further management. The patient has a urinalysis which could be consistent with infection however she has no dysuria. Given the possibility for contamination I will defer antibiotic treatment to the admitting team as well as awaiting further culture results. Triage Nursing notes reviewed. Prior medical records reviewed Vital Signs: reviewed and remarkable for elevated blood pressure and bradycardia. Differential diagnosis: Benign hypertension, hypertensive emergency, cardiovascular pathology, toxicologic, pheochromocytoma, electrolyte abnormality, renal disease, endorgan damage, as well as other pathologies. ER treatment provided: See below Diagnostics interpreted by me: ECG: EKG was obtained in the emergency department. My interpretation is sinus bradycardia at 47 bpm. There was no ectopy. There was no acute ST segment abnormalities noted. No previous tracings available. Cardiac Monitoring: An order was placed for continuous cardiac monitoring. The monitor shows a rate of 48 bpm with sinus bradycardia. Laboratory studies: As stated above and show below. Imaging studies: See below Consultation(s): Discussed this case with Dr. Villagomez who is on-call for the [facility] SIGN BUILDER group. 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 GERD (gastroesophageal reflux disease) History of vaginal discharge Need for rhogam due to Rh negative mother Obese hemorrhage Screening, , for anatomic survey Supervision of normal first Varicella vaccination Surgical History History of oral surgery History of umbilical hernia repair 5 years ago Family History Mother Hypertension Aunt Deep vein thrombosis Denies family history of Ovarian cancer Breast cancer Colorectal cancer Social History Smoking Status: Never smoker Second Hand Exposure: No; Hx Alcohol Use: No Hx Substance Use: No Preferred Language: Prydeinig Communication Ability: Effective Coil Placer Required: No Beliefs That Will Affect Care: None marital status: marital status details: Javy Uriarte (33) [phone] Current Living Situation: Spouse Current Living Situation Comment: and 3 yo daughter current occupational status: employed current occupation: [employer] service [employer] Feels Safe at Home: Yes Assistive Devices: None Allergies Allergies Allergy/AdvReac Type Severity Reaction Status Date / Time Penicillins Allergy Intermediate Hives Verified 03/06/22 22:01 Home Meds Home Medications Medication Instructions Recorded Confirmed prenat.vits,freddy,pnb-izcr-xourd 1 tab PO DAILY 07/17/21 03/06/22 cetirizine 10 mg capsule (Zyrtec) 10 mg PO DAILY PRN Acid Reflux 10/12/21 03/06/22 acetaminophen 500 mg tablet 1,000 mg PO Q6H PRN Pain 03/06/22 03/06/22 (Tylenol Extra Strength) [id number] 250 1 tab PO Q6H PRN Pain 03/06/22 03/06/22 mg-250 mg-65 mg tablet (Excedrin Extra Strength) ibuprofen 200 mg tablet (Advil) 400 - 600 mg PO Q6H PRN Pain 03/06/22 03/06/22 pseudoephedrine HCl 60 mg tablet 60 mg PO Q6H PRN Congestion 03/06/22 03/06/22 Results & Data (ED) Vital Signs Vital Signs - 24 hr 03/06/22 15:38 03/06/22 20:23 03/06/22 21:23 Temperature 36.9 C Temperature Source Oral Pulse Rate 65 Pulse Rate [Finger] 48 L Pulse Rhythm Regular Pulse Strength Normal Respiratory Rate 18 18 Respiratory Effort / Characteristics Non-Labored Respiratory Depth Normal Normal Respiratory Pattern Regular Blood Pressure 159/91 H Blood Pressure [Right Arm] 164/105 H 137/86 Blood Pressure Mean 113 Blood Pressure Mean [Right Arm] 124 103 Blood Pressure Position Sitting Pulse Oximetry 98 100 Oxygen Delivery Method Room Air Sepsis Recent Fever Within 48 Hours No Sepsis New/Unexplained Change in Mental Status N/A Sepsis Action Taken by Nursing No Action Required Home Medications Current Medication List: was personally reviewed by me Laboratory Data Attestation: I reviewed the patient's lab results. Result diagrams: 03/06/22 15:57 03/06/22 15:57 Lab Results 03/06/22 03/06/22 03/06/22 Range/Units 15:57 15:57 15:57 WBC 9.34 (4.8-10.8) K/ul RBC 3.02 L (3.93-5.22) M/uL Hgb 9.3 L (12.0-16.0) g/dl Hct 27.6 L (34.1-44.9) % MCV 91.4 (80.0-100.0) fL MCH 30.8 (25.0-34.0) pg MCHC 33.7 (32.0-36.0) g/dL RDW Std Deviation 44.2 (36.4-46.3) fL RDW Coeff of Leticia 13.5 (11.5-14.5) % Plt Count 340 (130-400) K/uL MPV 8.9 L (9.4-12.3) fL Immature Gran % (Auto) 1.9 % Neut % (Auto) 59.8 % Lymph % (Auto) 30.1 % [place] % (Auto) 5.5 % Eos % (Auto) 2.2 % Baso % (Auto) 0.5 % Neut # (Auto) 5.58 (1.4-6.5) K/uL Lymph # (Auto) 2.81 (1.2-3.4) K/uL [place] # (Auto) 0.51 (0.24-0.82) K/uL Eos # (Auto) 0.21 (0-0.50) K/uL Baso # (Auto) 0.05 (0-0.2) K/uL Immature Gran # (Auto) 0.18 H (0.00-0.02) K/uL Absolute Nucleated RBC 0.02 H (0-0) K/uL Nucleated RBC % (auto) 0.2 % PT 10.2 (9.0-12.0) Seconds INR 1.0 (0.9-1.1) APTT 24.4 (21.0-31.0) Seconds PTT Ratio 0.9 Sodium 141 (136-145) mmol/L Potassium 4.0 (3.5-5.1) mmol/L Chloride 107 (98-107) mmol/L Carbon Dioxide 25 (21-32) mmol/L Anion Gap 9 (3-11) BUN 17 (6-23) mg/dl Creatinine 0.69 (0.6-1.2) mg/dl Est Cr Clr Drug Dosing 136.3 ml/min Est GFR ( Amer) 133.5 ml/min Est GFR (Non-Af Amer) 115.2 ml/min BUN/Creatinine Ratio 24.6 H (10-20) Glucose 97 (70-99(Fasting)) mg/dl Calcium 8.9 (8.5-10.1) mg/dl Magnesium 1.8 (1.7-2.4) mg/dl Total Bilirubin 0.3 (0.2-1.0) mg/dl AST 34 (13-39) U/L ALT 43 (7-52) U/L Alkaline Phosphatase 121 H (34-104) U/L Troponin I High Sens 8.1 (0-14) pg/ml Total Protein 6.7 (6.0-8.3) gm/dl Albumin 3.7 (3.4-5.0) gm/dl Globulin 3.0 (2.5-4.0) gm/dl Albumin/Globulin Ratio 1.2 (0.9-2) TSH (0.300-4.500) uIu/ml Urine Color Urine Appearance (Clear) Urine pH (4.5-7.5) Ur Specific [place] (1.000-1.030) Urine Protein (Negative) Urine Glucose (UA) (Negative) Urine Ketones (Negative) Urine Blood (Negative) Urine Nitrite (Negative) Urine Bilirubin (Negative) Urine Urobilinogen (Negative) Ur Leukocyte Esterase (Negative) Urine WBC (Auto) (0-5) /hpf Urine RBC (Auto) (0-4) /hpf U Hyaline Cast (Auto) (0-5) /lpf U Epithel Cells (Auto) (0-5) /lpf Urine Bacteria (Auto) (Negative) SARS-CoV-2, RNA, NAAT (NEGATIVE) 03/06/22 03/06/22 03/06/22 Range/Units 15:57 15:57 20:39 WBC (4.8-10.8) K/ul RBC (3.93-5.22) M/uL Hgb (12.0-16.0) g/dl Hct (34.1-44.9) % MCV (80.0-100.0) fL MCH (25.0-34.0) pg MCHC (32.0-36.0) g/dL RDW Std Deviation (36.4-46.3) fL RDW Coeff of Leticia (11.5-14.5) % Plt Count (130-400) K/uL MPV (9.4-12.3) fL Immature Gran % (Auto) % Neut % (Auto) % Lymph % (Auto) % [place] % (Auto) % Eos % (Auto) % Baso % (Auto) % Neut # (Auto) (1.4-6.5) K/uL Lymph # (Auto) (1.2-3.4) K/uL [place] # (Auto) (0.24-0.82) K/uL Eos # (Auto) (0-0.50) K/uL Baso # (Auto) (0-0.2) K/uL Immature Gran # (Auto) (0.00-0.02) K/uL Absolute Nucleated RBC (0-0) K/uL Nucleated RBC % (auto) % PT (9.0-12.0) Seconds INR (0.9-1.1) APTT (21.0-31.0) Seconds PTT Ratio Sodium (136-145) mmol/L Potassium (3.5-5.1) mmol/L Chloride (98-107) mmol/L Carbon Dioxide (21-32) mmol/L Anion Gap (3-11) BUN (6-23) mg/dl Creatinine (0.6-1.2) mg/dl Est Cr Clr Drug Dosing ml/min Est GFR ( Amer) ml/min Est GFR (Non-Af Amer) ml/min BUN/Creatinine Ratio (10-20) Glucose (70-99(Fasting)) mg/dl Calcium (8.5-10.1) mg/dl Magnesium (1.7-2.4) mg/dl Total Bilirubin (0.2-1.0) mg/dl AST (13-39) U/L ALT (7-52) U/L Alkaline Phosphatase (34-104) U/L Troponin I High Sens (0-14) pg/ml Total Protein (6.0-8.3) gm/dl Albumin (3.4-5.0) gm/dl Globulin (2.5-4.0) gm/dl Albumin/Globulin Ratio (0.9-2) TSH 2.031 (0.300-4.500) uIu/ml Urine Color Yellow Urine Appearance Clear (Clear) Urine pH 6.0 (4.5-7.5) Ur Specific [place] 1.028 (1.000-1.030) Urine Protein Trace H (Negative) Urine Glucose (UA) Negative (Negative) Urine Ketones Trace H (Negative) Urine Blood 3+ H (Negative) Urine Nitrite Negative (Negative) Urine Bilirubin Negative (Negative) Urine Urobilinogen Negative (Negative) Ur Leukocyte Esterase 2+ H (Negative) Urine WBC (Auto) >30 H (0-5) /hpf Urine RBC (Auto) >30 H (0-4) /hpf U Hyaline Cast (Auto) 10-30 H (0-5) /lpf U Epithel Cells (Auto) 10-20 H (0-5) /lpf Urine Bacteria (Auto) Negative (Negative) SARS-CoV-2, RNA, NAAT NEGATIVE (NEGATIVE) Administered Medications Discontinued Medications Magnesium Sulfate/Dextrose (Magnesium Sulfate / D5w) 1 gm in 100 mls @ 100 mls/hr IV NOW STA Stop: 03/06/22 21:36 Last Admin: 03/06/22 21:36 Dose: 100 mls/hr Documented By: ROD Ioversol (Optiray 320 500ml) 109 ml IV ONCE ONE Stop: 03/06/22 21:01 Last Admin: 03/06/22 21:00 Dose: 109 ml Documented By: FABIEN Imaging Data Radiologist's Impression: Chest X-Ray 03/06/22 15:41 XR chest 1V portable HISTORY: Chest pressure. COMPARISON: None. FINDINGS: The lungs are clear. The cardiac silhouette is borderline enlarged. This may be accentuated by the AP portable technique. No pleural effusions. No pneumothorax. No acute fractures identified. IMPRESSION: The cardiac silhouette is borderline enlarged. This may be accentuated by the AP portable technique. ACT 112: Negative or not required by law. Electronically signed by: Gamaliel Parmar M.D. 03/06/2022 8:21 PM Patient: JOVANNA URIARTE (Female) : 88 Status: ER Date: 03/06/22 21:13 Room #: History: post pardum hypertension Slices: [id number] Priors: Tech: [place], Matt @ [phone] Exams: CTA CHEST Contrast: IV Amt: 109 Accession Numbers: [id number] Referring Physician: SHEILA ECKERT Preliminary Findings Only See Final Report For Complete Findings CTA CHEST: Comparison to chest x-ray from March 06, 2022. The pulmonary arterial tree is well opacified with contrast. No pulmonary emboli are identified. The thoracic aorta is nondilated. There is no aneurysm or dissection. The heart is upper normal in size. No pericardial effusion is seen. No mediastinal or axillary lymphadenopathy or mass is seen. Lungs are well-inflated and clear. No infiltrate or consolidation is seen. No pneumothorax or pleural effusion. Radiologist: Mingo Yan MD Study ready at 21:14 and initial results transmitted at 21:26 Discharge Plan Visit Data Chief Complaint: Hypertension Stated Complaint: REF BY , HIGH BP ED Provider: Sheila Eckert Discharge Problem: Pre-eclampsia in period, Edema, peripheral, Chest pain, Anemia Forms Stand Alone Forms: [facility] Prescriptions Prescriptions: No Action prenat.vits,freddy,qkm-zlsk-wfitp Tablet 1 tab PO DAILY Zyrtec 10 mg capsule 10 mg PO DAILY PRN (Reason: Acid Reflux) acetaminophen [Tylenol Extra Strength] 500 mg Tablet 1,000 mg PO Q6H PRN (Reason: Pain) ibuprofen [Advil] 200 mg Tablet 400 - 600 mg PO Q6H PRN (Reason: Pain) pseudoephedrine HCl [Sudafed] 60 mg Tablet 60 mg PO Q6H PRN (Reason: Congestion) Excedrin Extra Strength 250-250-65 mg Tablet 1 tab PO Q6H PRN (Reason: Pain) Referrals Referrals: Mary Manuel CRNP [Primary Care Provider] -
--- NOTE | 2022-03-06 20:22 | XRay Report ---
XR chest 1V portable HISTORY: Chest pressure. COMPARISON: None. FINDINGS: The lungs are clear. The cardiac silhouette is borderline enlarged. This may be accentuated by the AP portable technique. No pleural effusions. No pneumothorax. No acute fractures identified. IMPRESSION: The cardiac silhouette is borderline enlarged. This may be accentuated by the AP portable technique. ACT 112: Negative or not required by law. Electronically signed by: Gamaliel Parmar M.D. 03/06/2022 8:21 PM
[2022-03-06] MEDS ORDERED: MAGNESIUM SULFATE / D5W 1 GM/100 ML BAG IV STA (20:37)
[2022-03-06] MEDS ORDERED: OPTIRAY 320 500ml IV ONE (21:00)
--- NOTE | 2022-03-06 22:01 | History & Physical Report ---
Date of Service March 06, 2022 Assessment & Plan (1) Preeclampsia in period: Plan: Elevated BP, headache / chest pain, and urine protein (though most likely urine is contaminated). Renal/hepatic labs are normal. Discussed with patient that I can't 100% differentiate between preeclampsia vs anxiety and stress in her case, but the safest thing to do is manage her as preeclampsia. That would include re-admission for 24 hours of magnesium therapy and monitoring. Meanwhile she will also have a convenient chance to get some much-needed rest. Baby is formula-fed and can be cared for by dad/grandparents which mom feels comfortable with. History of Present Illness Primary Care Provider: LITO Prasad 31yo PPD#7 from and PPH/curettage for retained placenta. She was doing well after going home on PPD#2, until PPD#6 she began having very had headache and a "gas bubble" in the upper mid abdomen that progressed to feeling like mid- chest pain and pressure today. Tylenol, motrin, excedrin all tried without relief. Lots of bilateral LE edema. Has been a rough week stress-fried with daughter in ER on Saturday as well. Has barely slept, very stressed, patient says she was chalking her symptoms up to anxiety/panic or sleep deprivation, rather than suspecting a medical problem. Today she realized she should call in due to the chest pressure, and was told to come to office, then was referred to hospital when her BP in office was high. She didn't realize it could be preeclampsia or even something worse until she was in the office today. She feels like she really needs a break, a chance to rest, and maybe that's all she needs - but is happy to accept IV mag and a 24hr admission if that's what we recommend. Whether it's preeclampsia or just being overwhelmed, she needs a "time out" and is accepting of readmission. Wants her to go home to help her mother with the so she can just sleep and make the most of her time here. Allergies Allergy/AdvReac Type Severity Reaction Status Date / Time Penicillins Allergy Intermediate Hives Verified 03/06/22 22:01 Home Medications Medication Instructions Recorded Confirmed Type prenat.vits,freddy,kvb-qfdw-bzjli 1 tab PO DAILY 07/17/21 03/06/22 History cetirizine 10 mg capsule (Zyrtec) 10 mg PO DAILY PRN Acid Reflux 10/12/21 03/06/22 History acetaminophen 500 mg tablet 1,000 mg PO Q6H PRN Pain 03/06/22 03/06/22 History (Tylenol Extra Strength) aulygah-imdvqhjhcqsxd-vzylfwmt 250 1 tab PO Q6H PRN Pain 03/06/22 03/06/22 History mg-250 mg-65 mg tablet (Excedrin Extra Strength) ibuprofen 200 mg tablet (Advil) 400 - 600 mg PO Q6H PRN Pain 03/06/22 03/06/22 History pseudoephedrine HCl 60 mg tablet 60 mg PO Q6H PRN Congestion 03/06/22 03/06/22 History Patient History Medical History Blood pressure elevated without history of HTN 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, 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; opiod addiction; 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 GERD (gastroesophageal reflux disease) History of vaginal discharge Need for rhogam due to Rh negative mother Obese hemorrhage Screening, , for anatomic survey Supervision of normal first Varicella vaccination Surgical History History of oral surgery History of umbilical hernia repair 5 years ago Family History Mother Hypertension Aunt Deep vein thrombosis Denies family history of Ovarian cancer Breast cancer Colorectal cancer Social History Smoking Status: Never smoker Second Hand Exposure: No; Hx Alcohol Use: No Hx Substance Use: No Preferred Language: Burmese Communication Ability: Effective Sales Support Advisor Required: No Beliefs That Will Affect Care: None marital status: marital status details: Javy Chapito (33) [phone] Current Living Situation: Spouse Current Living Situation Comment: and 3 yo daughter current occupational status: employed current occupation: [employer] service [employer] Feels Safe at Home: Yes Assistive Devices: None Physical Exam Constitutional: WD/WN, vitals as above Eyes: PERRL, conjunctivae normal, anicteric sclerae ENMT: external ear and nose normal, oropharynx normal Neck: supple Respiratory: normal respiratory effort and able to speak in complete sentences; no respiratory distress Cardiovascular: Rate/Rhythm: regular rate and regular rhythm Extremities: + pedal edema Musculoskeletal: no cyanosis or clubbing, extremities motor strength 5/5 Skin: no rashes, warm and dry Neurologic: patellar DTR's 2+ bilat, sensation intact Psychiatric: A+Ox3, euthymic affect Results & Data ([facility]) Vital Signs (Past 12 Hours) Vital Signs Temp Pulse Pulse Resp BP BP Pulse Ox 03/06/22 21:23 137/86 03/06/22 20:23 48 L 18 164/105 H 100 03/06/22 15:38 98.4 F 65 18 159/91 H 98 O2 Del Method 03/06/22 21:23 03/06/22 20:23 03/06/22 15:38 Room Air Laboratory Results Laboratory Results - last 24 hr 03/06/22 03/06/22 03/06/22 15:57 15:57 15:57 WBC 9.34 RBC 3.02 L Hgb 9.3 L Hct 27.6 L MCV 91.4 MCH 30.8 MCHC 33.7 RDW Std Deviation 44.2 RDW Coeff of Leticia 13.5 Plt Count 340 MPV 8.9 L Immature Gran % (Auto) 1.9 Neut % (Auto) 59.8 Lymph % (Auto) 30.1 [place] % (Auto) 5.5 Eos % (Auto) 2.2 Baso % (Auto) 0.5 Neut # (Auto) 5.58 Lymph # (Auto) 2.81 [place] # (Auto) 0.51 Eos # (Auto) 0.21 Baso # (Auto) 0.05 Immature Gran # (Auto) 0.18 H Absolute Nucleated RBC 0.02 H Nucleated RBC % (auto) 0.2 PT 10.2 INR 1.0 APTT 24.4 PTT Ratio 0.9 Sodium 141 Potassium 4.0 Chloride 107 Carbon Dioxide 25 Anion Gap 9 BUN 17 Creatinine 0.69 Est Cr Clr Drug Dosing 136.3 Est GFR ( Amer) 133.5 Est GFR (Non-Af Amer) 115.2 BUN/Creatinine Ratio 24.6 H Glucose 97 Calcium 8.9 Magnesium 1.8 Total Bilirubin 0.3 AST 34 ALT 43 Alkaline Phosphatase 121 H Troponin I High Sens 8.1 Total Protein 6.7 Albumin 3.7 Globulin 3.0 Albumin/Globulin Ratio 1.2 TSH Urine Color Urine Appearance Urine pH Ur Specific [place] Urine Protein Urine Glucose (UA) Urine Ketones Urine Blood Urine Nitrite Urine Bilirubin Urine Urobilinogen Ur Leukocyte Esterase Urine WBC (Auto) Urine RBC (Auto) U Hyaline Cast (Auto) U Epithel Cells (Auto) Urine Bacteria (Auto) SARS-CoV-2, RNA, NAAT 03/06/22 03/06/22 03/06/22 15:57 15:57 20:39 WBC RBC Hgb Hct MCV MCH MCHC RDW Std Deviation RDW Coeff of [place] Plt Count MPV Immature Gran % (Auto) Neut % (Auto) Lymph % (Auto) [place] % (Auto) Eos % (Auto) Baso % (Auto) Neut # (Auto) Lymph # (Auto) [place] # (Auto) Eos # (Auto) Baso # (Auto) Immature Gran # (Auto) Absolute Nucleated RBC Nucleated RBC % (auto) PT INR APTT PTT Ratio Sodium Potassium Chloride Carbon Dioxide Anion Gap BUN Creatinine Est Cr Clr Drug Dosing Est GFR ( Amer) Est GFR (Non-Af Amer) BUN/Creatinine Ratio Glucose Calcium Magnesium Total Bilirubin AST ALT Alkaline Phosphatase Troponin I High Sens Total Protein Albumin Globulin Albumin/Globulin Ratio TSH 2.031 Urine Color Yellow Urine Appearance Clear Urine pH 6.0 Ur Specific [place] 1.028 Urine Protein Trace H Urine Glucose (UA) Negative Urine Ketones Trace H Urine Blood 3+ H Urine Nitrite Negative Urine Bilirubin Negative Urine Urobilinogen Negative Ur Leukocyte Esterase 2+ H Urine WBC (Auto) >30 H Urine RBC (Auto) >30 H U Hyaline Cast (Auto) 10-30 H U Epithel Cells (Auto) 10-20 H Urine Bacteria (Auto) Negative SARS-CoV-2, RNA, NAAT NEGATIVE Coding Level of Care Code INT OBSERVATION CARE 50M LVL 2 Diagnoses Preeclampsia in period O14.95
[2022-03-06] MEDS ORDERED: BENZOCAINE 20% AER SPR 82.5 GM CAN EXT PRN (22:48)
[2022-03-06] MEDS ORDERED: CETIRIZINE HCL 10 MG TABLET PO PRN (22:53)
[2022-03-06] MEDS ORDERED: MAG SULFATE 6GM BOLUS FROM BAG IV ONE (23:00)
[2022-03-06] MEDS: ACETAMINOPHEN 325 MG TAB PO PRN (23:17)
[2022-03-06] MEDS: LACTATED RINGER'S 1,000 ML IV SCH (23:25)
[2022-03-06] MEDS: MAGNESIUM SULFATE / WTR 40 GM/1,000 ML BAG IV SCH (23:25)
[2022-03-07] MEDS: IBUPROFEN 600 MG TAB PO PRN ×3 (02:20→15:23)
--- NOTE | 2022-03-07 06:25 | Obstetrical Progress Note ---
Date of Service March 07, 2022 Assessment & Plan (1) Pre-eclampsia in period: Continue magnesium therapy today. Has not required antihypertensives for treatment of severe pressures, but may yet prove to require management for BP on a chronic basis, as she remains in the mild-HTN range. Subjective Patient with ongoing headache, hoping caffeinated beverage this AM will help, did not feel tylenol made as much difference as excedrin at home would have. No vision changes. Her chest/epigastric discomfort has resolved. Edema is stable or a little improved. Able to get some sleep last night and grateful for it. Physical Exam Constitutional WD/WN, vitals as above Resting supine, but easily aroused to normal level of alertness. Respiratory normal respiratory effort and able to speak in complete sentences; no respiratory distress Cardiovascular Rate/Rhythm: regular rate and regular rhythm Extremities: + pedal edema (same or slightly improved from last night) Skin no rashes, warm and dry Neurologic patellar DTR's 2+ bilat, sensation intact Psychiatric A+Ox3, euthymic affect Results & Data ([facility]) Vital Signs (Past 12 Hours) Vital Signs Temp Pulse Pulse Resp BP BP Pulse Ox 03/07/22 06:00 98.4 F 03/07/22 06:00 16 03/07/22 05:00 16 03/07/22 04:00 16 03/07/22 02:00 16 03/07/22 00:00 16 03/07/22 06:17 73 99 03/07/22 06:12 77 100 03/07/22 06:01 98 03/07/22 06:01 55 L 03/07/22 06:01 59 L 153/88 H 03/07/22 05:56 63 95 03/07/22 05:51 58 L 99 03/07/22 05:49 80 92 03/07/22 05:46 57 L 98 03/07/22 05:41 64 95 03/07/22 05:36 56 L 97 03/07/22 05:31 59 L 97 03/07/22 05:26 63 96 03/07/22 05:21 63 96 03/07/22 05:19 62 92 03/07/22 05:16 60 96 03/07/22 05:11 59 L 97 03/07/22 05:06 56 L 97 03/07/22 05:01 55 L 100 03/07/22 05:00 60 145/89 H 03/07/22 04:56 59 L 97 03/07/22 04:51 56 L 97 03/07/22 04:46 53 L 97 03/07/22 04:41 54 L 97 03/07/22 04:36 59 L 98 03/07/22 04:31 69 99 03/07/22 04:26 66 100 03/07/22 04:21 87 100 03/07/22 04:11 73 94 03/07/22 04:06 55 L 97 03/07/22 04:01 57 L 100 03/07/22 04:00 63 166/98 H 03/07/22 03:56 60 100 03/07/22 03:54 57 L 94 03/07/22 03:51 61 93 03/07/22 03:48 61 92 03/07/22 03:46 62 96 03/07/22 03:00 18 03/07/22 03:00 18 03/07/22 03:41 59 L 97 03/07/22 03:40 66 93 03/07/22 03:36 58 L 97 03/07/22 03:31 55 L 97 03/07/22 03:26 61 99 03/07/22 03:22 62 94 03/07/22 03:21 50 L 98 03/07/22 03:16 56 L 98 03/07/22 03:11 63 97 03/07/22 03:06 51 L 99 03/07/22 03:01 52 L 165/98 H 99 03/07/22 02:56 48 L 99 03/07/22 02:51 47 L 99 03/07/22 02:46 51 L 99 03/07/22 02:41 48 L 100 03/07/22 02:36 51 L 97 03/07/22 02:31 66 99 03/07/22 02:26 59 L 99 03/07/22 02:21 63 99 03/07/22 02:16 84 100 03/07/22 02:06 88 100 03/07/22 02:01 97.9 F 60 98 03/07/22 02:00 67 138/86 03/07/22 01:59 60 90 03/07/22 01:56 49 L 98 03/07/22 01:51 51 L 99 03/07/22 01:46 55 L 97 03/07/22 01:41 58 L 97 03/07/22 01:36 57 L 97 03/07/22 01:31 54 L 97 03/07/22 01:26 49 L 97 03/07/22 01:21 50 L 96 03/07/22 01:16 46 L 97 03/07/22 01:11 46 L 97 03/07/22 01:06 47 L 97 03/07/22 00:59 16 03/07/22 00:59 16 03/07/22 01:01 43 L 98 03/07/22 01:00 42 L 141/81 H 03/07/22 00:56 44 L 99 03/07/22 00:51 59 L 98 03/07/22 00:46 55 L 100 03/07/22 00:41 68 100 03/07/22 00:31 56 L 161/94 H 03/07/22 00:30 47 L 16 96 03/07/22 00:25 46 L 95 03/07/22 00:20 44 L 96 03/07/22 00:16 53 L 158/93 H 03/07/22 00:15 50 L 16 95 03/07/22 00:10 51 L 96 03/07/22 00:05 54 L 94 03/07/22 00:03 53 L 94 03/07/22 00:01 47 L 121/83 03/07/22 00:00 62 98 03/06/22 23:55 58 L 98 03/06/22 23:03 16 03/06/22 23:03 16 03/06/22 23:30 16 03/06/22 23:30 16 03/06/22 23:50 54 L 95 03/06/22 23:47 58 L 142/90 H 03/06/22 23:45 53 L 16 97 03/06/22 23:40 57 L 98 03/06/22 23:35 59 L 98 03/06/22 23:31 46 L 125/83 03/06/22 23:02 48 L 135/77 03/06/22 22:56 98.4 F 16 03/06/22 22:56 16 03/06/22 22:56 98.4 F 16 03/06/22 21:23 137/86 10/18/22 20:23 48 L 18 164/105 H 100 O2 Del Method 03/07/22 06:00 03/07/22 06:00 03/07/22 05:00 03/07/22 04:00 03/07/22 02:00 03/07/22 00:00 03/07/22 06:17 03/07/22 06:12 03/07/22 06:01 03/07/22 06:01 03/07/22 06:01 03/07/22 05:56 03/07/22 05:51 03/07/22 05:49 03/07/22 05:46 03/07/22 05:41 03/07/22 05:36 03/07/22 05:31 03/07/22 05:26 03/07/22 05:21 03/07/22 05:19 03/07/22 05:16 03/07/22 05:11 03/07/22 05:06 03/07/22 05:01 03/07/22 05:00 03/07/22 04:56 03/07/22 04:51 03/07/22 04:46 03/07/22 04:41 03/07/22 04:36 03/07/22 04:31 03/07/22 04:26 03/07/22 04:21 03/07/22 04:11 03/07/22 04:06 03/07/22 04:01 03/07/22 04:00 03/07/22 03:56 03/07/22 03:54 03/07/22 03:51 03/07/22 03:48 03/07/22 03:46 03/07/22 03:00 03/07/22 03:00 03/07/22 03:41 03/07/22 03:40 03/07/22 03:36 03/07/22 03:31 03/07/22 03:26 03/07/22 03:22 03/07/22 03:21 03/07/22 03:16 03/07/22 03:11 03/07/22 03:06 03/07/22 03:01 03/07/22 02:56 03/07/22 02:51 03/07/22 02:46 03/07/22 02:41 03/07/22 02:36 03/07/22 02:31 03/07/22 02:26 03/07/22 02:21 03/07/22 02:16 03/07/22 02:06 03/07/22 02:01 03/07/22 02:00 03/07/22 01:59 03/07/22 01:56 03/07/22 01:51 03/07/22 01:46 03/07/22 01:41 03/07/22 01:36 03/07/22 01:31 03/07/22 01:26 03/07/22 01:21 03/07/22 01:16 03/07/22 01:11 03/07/22 01:06 03/07/22 00:59 03/07/22 00:59 03/07/22 01:01 03/07/22 01:00 03/07/22 00:56 03/07/22 00:51 03/07/22 00:46 03/07/22 00:41 03/07/22 00:31 03/07/22 00:30 03/07/22 00:25 03/07/22 00:20 03/07/22 00:16 03/07/22 00:15 03/07/22 00:10 03/07/22 00:05 03/07/22 00:03 03/07/22 00:01 03/07/22 00:00 03/06/22 23:55 03/06/22 23:03 03/06/22 23:03 03/06/22 23:30 03/06/22 23:30 03/06/22 23:50 03/06/22 23:47 03/06/22 23:45 03/06/22 23:40 03/06/22 23:35 03/06/22 23:31 03/06/22 23:02 03/06/22 22:56 03/06/22 22:56 03/06/22 22:56 Room Air 03/06/22 21:23 03/06/22 20:23
[2022-03-07] MEDS: ACETAMINOPHEN 325 MG TAB PO PRN ×2 (06:26→12:06)
--- NOTE | 2022-03-07 08:02 | CT Scan Report ---
CT ANGIOGRAM OF THE CHEST CLINICAL HISTORY: Chest pressure. COMPARISON STUDY: Chest x-ray dated 03/06/2022. TECHNIQUE: Following the IV administration of 109 cc of Optiray 320, CT angiogram of the chest was pe rformed from the upper abdomen to the thoracic inlet utilizing the pulmonary embolus protocol. Images are reviewed in the axial, sagittal, and coronal planes. 3-D MIPS images are created and assessed. I V contrast was administered without complication. A dose lowering technique was utilized adhering to the principles of ALARA. CT DOSE: 574.95 mGy.cm FINDINGS: Thyroid: Imaged portions of the thyroid gland are normal in size and attenuation. Thoracic aorta: The thoracic aorta is normal in caliber and demonstrates standard 3-vessel arch anato my. No dissection is seen. Pulmonary vasculature: The pulmonary trunk is normal in caliber. There are subsegmental pulmonary emb edgar seen in the right lower lobe on images #69 and #103. The remaining pulmonary vessels are clear. Heart: The heart is normal in size and without pericardial effusion. Lungs and pleural spaces: The lungs and pleural spaces are clear. Mediastinum: There is no mediastinal lymphadenopathy. Beckie: Clear. Axillae: There is no axillary lymphadenopathy. Upper abdomen: Partially visualized upper abdominal viscera is within normal limits. Skeletal structures: No lytic or blastic bony lesions are seen. IMPRESSION: 1. There are subsegmental pulmonary emboli within branches of the right lower lobe pulmonary artery. 2. The lungs are clear. ACT 112: Negative or not required by law. Electronically signed by: Damion Mccracken M.D. 03/07/2022 8:01 AM
--- NOTE | 2022-03-07 08:46 | Communication Note ---
Date of Service: March 07, 2022 AM Over-read of CT scan does identify RLL subsegmental pulmonary emboli. Discussed with Hospitalist Dr. Ralph who is requested to consult for antico agulation. Discussed with oncoming coverage Dr. Braun who will be taking over care of patient today. Will ensure no SCD's on patient for now, and make her aware of this diagnosis and upcoming management. Anticipate full anticoagulation will be required. Also anticipate maintaining magnesium for presumed preeclampsia for now given headache and BP elevations, though the decision to discontinue magnesium may also be reasonable; will leave to daytime team.
--- NOTE | 2022-03-07 09:11 | Electrocardiogram Report ---
Test Reason : Blood Pressure : / mmHG Vent. Rate : 047 BPM Atrial Rate : 047 BPM P-R Int : 130 ms QRS Dur : 092 ms QT Int : 420 ms P-R-T Axes : 043 049 045 degrees QTc Int : 371 ms Sinus bradycardia with sinus arrhythmia Otherwise normal ECG No previous ECGs available Confirmed by Olu Kennedy ([id number]) on 03/07/2022 9:11:11 AM Referred By: Nadia Braun Confirmed By:Olu Kennedy
--- NOTE | 2022-03-07 09:23 | Electrocardiogram Report ---
Test Reason : Blood Pressure : / mmHG Vent. Rate : 048 BPM Atrial Rate : 048 BPM P-R Int : 142 ms QRS Dur : 092 ms QT Int : 440 ms P-R-T Axes : 057 048 045 degrees QTc Int : 393 ms Poor data quality, interpretation may be adversely affected Sinus bradycardia with sinus arrhythmia Otherwise normal ECG When compared with ECG of 06-MAR-2022 15:47, No significant change was found Confirmed by Olu Kennedy ([id number]) on 03/07/2022 9:22:52 AM Referred By: Nadia Braun Confirmed By:Olu Kennedy
[2022-03-07] MEDS: PRENATAL VITAMIN 1 TAB PO SCH (10:01)
[2022-03-07] MEDS ORDERED: APIXABAN 5 MG TABLET PO ONE (10:45)
[2022-03-07] MEDS: LACTATED RINGER'S 1,000 ML IV SCH (12:03)
--- NOTE | 2022-03-07 13:55 | XCELERA ---
[id number]
[2022-03-07] MEDS ORDERED: LORazepam 0.5 MG TAB PO STA (15:09)
[2022-03-07] MEDS: MAGNESIUM SULFATE / WTR 40 GM/1,000 ML BAG IV SCH (15:22)
[2022-03-07] MEDS ORDERED: HYDROmorphone INJ 0.5 MG/0.5 ML SYR IV PRN (16:35)
--- NOTE | 2022-03-07 16:56 | Hospitalist Consultation ---
Date of Consultation March 07, 2022 Assessment & Plan (1) Pulmonary embolism: This is considered a provoked pulmonary embolism in the setting of . Patient has no focal leg pain and an ultrasound of her legs would not add to her treatment duration or choice of treatment. Since the patient has only scant bleeding and no signs of right heart strain or hemodynamic issues the patient will be begun on Eliquis therapy 10 mg twice daily for 7 days then 5 mg twice daily for up to a 6-month course. Patient may discuss duration of course with her primary care provider upon discharge. With regard to her headache this seems to be not a migraine headache and her description could be a tension headache we will attempt to use pain control and hydration. Likewise gynecology is using an IV magnesium infusion in case this would be a preeclamptic headache. Her blood pressure slightly elevated but this might be associated with her having a headache Echo is normal, no right heart strain or pfo Patient has no issues with worsening anemia (she has pre-existing anemia which likely is related to her recent delivery) she may be discharged home on Eliquis. Will be glad to evaluate this patient in the morning History of Present Illness Attending Physician: Kassidy Villagomez MD History of Present Illness 31yo PPD#7 from and PPH/curettage for retained placenta. Discharge secondary about the 6 days began having a headache and feel like she had a gas bubble in her mid upper abdomen that progressed to some right shoulder pain posterior head pain and headache. [employer] brought her in the hospital for concerns for preeclampsia her CT angiogram was read to be subsegmental pulmonary embolisms in her right lower lobe. She does not have defined pleuritic chest pain in that area but this of just generalized pain on her right scapula and posterior head associate with a bifrontal headache. She has never had a blood clot in the past her mother did not of any blood clot she feels that her aunt may have had a blood clot . Nor is the patient any challenges in the past with or miscarriages. She does have any focal leg discomfort or swelling Patient is bleeding is very scant I did discuss the fact of anticoagulation with her radio tower technician on-call and they feel it would be appropriate to assume therapeutic anticoagulation and without worry for excessive bleeding at this stage We did recommend checking an echocardiogram for right heart strain this was checked and negative for any cardiac issues in structure or right heart strain Allergies Allergy/AdvReac Type Severity Reaction Status Date / Time Penicillins Allergy Intermediate Hives Verified 03/06/22 22:01 Home Medications Medication Instructions Recorded Confirmed Type prenat.vits,freddy,lpk-ayjq-obmju 1 tab PO DAILY 07/17/21 03/06/22 History cetirizine 10 mg capsule (Zyrtec) 10 mg PO DAILY PRN Acid Reflux 10/12/21 03/06/22 History acetaminophen 500 mg tablet 1,000 mg PO Q6H PRN Pain 03/06/22 03/06/22 History (Tylenol Extra Strength) zrmvguw-duvoystallbqy-kqemvtog 250 1 tab PO Q6H PRN Pain 03/06/22 03/06/22 History mg-250 mg-65 mg tablet (Excedrin Extra Strength) ibuprofen 200 mg tablet (Advil) 400 - 600 mg PO Q6H PRN Pain 03/06/22 03/06/22 History pseudoephedrine HCl 60 mg tablet 60 mg PO Q6H PRN Congestion 03/06/22 03/06/22 History apixaban 5 mg (74 tabs) tablets in 5 mg PO BID #74 ea 03/07/22 Rx a dose pack ([employer]) Patient History Medical History Blood pressure elevated without history of HTN 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, 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; opiod addiction; 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 Does not currently use) Last Used Substance: Days (ago) Last Used Substance Other:: 12 years ago Subs tance Use Type Other:: oxycontin Preferred Language: Azeri Communication Ability: Effective Neon Installer Required: No Beliefs That Will Affect Care: None marital status: marital status details: Javy Uriarte (33) [phone] Current Living Situation: Spouse and Family Current Living Situation Comment: and 2 daughters current occupational status: employed current occupation: [employer] Other Information That Helps Us Care for You: No Feels Safe at Home: Yes Safety Concerns: Feels Safe At This Time Assistive Devices: None Review of Systems Review of Systems: Mild distress and fatigue Bifrontal headache, dull, not positional, no visual changes no speech or swallowing issues no chest pain, pressure or palpitations Her pain is mostly right scapula no shortness of breath, cough or wheezes no abdominal pain, nausea or vomiting, diarrhea or constipation no dysuria, hematuria or frequency Very mild vaginal discharge that is dark No lower extremity swelling Mild right-sided back pain that is not reproducible and not radicular no bruising, bleeding or rashes no focal signs of weakness or numbness or altered sensation no complaints of anxiety or depression.. Physical Exam Physical Exam: The patient appeared well nourished and normally developed. Vital signs as documented. Head exam is normocephalic atraumatic PERRL Neck is without JVD, thyromegaly, or carotid bruits. Lungs are clear to auscultation, no focal loss of breath sounds there are no rubs there is no pleuritic component Cardiac exam, Rhythm is regular.. No murmurs, rubs or gallops. Abdominal exam reveals normal bowel sounds, soft mildly tender as would be expected in the bilateral lower quadrants and suprapubic area Extremities are nonedematous and both pedal pulses are present there is no cords negative Homans' sign Neurologic exam is alert and oriented, no focal loss of strength or sensation Skin is without bruises or rashes Psychologically is without concerns for anxiety or depression.. Results & Data Results & Data ([facility]) Vital Signs (Past 12 Hours) Vital Signs Temp Pulse Resp BP Pulse Ox O2 Del Method 03/07/22 16:00 20 03/07/22 15:00 98.8 F 20 03/07/22 15:00 20 03/07/22 14:00 20 03/07/22 13:00 20 03/07/22 12:00 20 10/19/22 11:00 98.1 F 20 03/07/22 11:00 20 03/07/22 10:00 20 03/07/22 09:00 20 03/07/22 07:00 20 03/07/22 08:00 97.9 F 20 03/07/22 08:00 20 03/07/22 08:00 Room Air 03/07/22 07:00 16 03/07/22 06:00 98.4 F 03/07/22 06:00 16 03/07/22 05:00 16 03/07/22 16:51 55 L 97 03/07/22 16:46 62 100 03/07/22 16:41 56 L 96 03/07/22 16:36 57 L 96 03/07/22 16:31 54 L 98 03/07/22 16:26 56 L 96 03/07/22 16:21 53 L 96 03/07/22 16:16 53 L 96 03/07/22 16:11 54 L 95 03/07/22 16:06 56 L 94 03/07/22 16:01 66 98 03/07/22 16:00 64 144/91 H 03/07/22 15:56 55 L 94 03/07/22 15:51 61 97 03/07/22 15:46 64 97 03/07/22 15:41 65 98 03/07/22 15:36 71 99 03/07/22 15:31 64 99 03/07/22 15:04 71 98 03/07/22 15:00 63 151/92 H 03/07/22 14:59 60 99 03/07/22 14:54 66 99 03/07/22 14:49 70 98 03/07/22 14:44 70 100 03/07/22 14:32 59 L 96 03/07/22 14:27 58 L 96 03/07/22 14:22 56 L 97 03/07/22 14:17 57 L 98 03/07/22 14:12 59 L 98 03/07/22 14:07 68 99 03/07/22 14:02 78 99 03/07/22 14:00 70 128/84 03/07/22 13:57 79 99 03/07/22 13:52 75 89 L 03/07/22 13:50 77 89 L 03/07/22 13:47 75 98 03/07/22 13:46 78 147/89 H 03/07/22 13:42 78 99 03/07/22 12:40 69 98 03/07/22 12:35 65 99 03/07/22 12:30 60 98 03/07/22 12:25 66 98 03/07/22 12:20 73 98 03/07/22 12:15 69 99 03/07/22 12:06 69 98 03/07/22 12:01 61 98 03/07/22 12:00 61 140/85 03/07/22 11:56 59 L 94 03/07/22 11:51 58 L 95 03/07/22 11:46 62 97 03/07/22 11:41 63 96 03/07/22 11:36 69 98 03/07/22 11:31 70 98 03/07/22 11:26 69 96 03/07/22 11:21 68 100 03/07/22 11:16 67 99 03/07/22 11:11 71 100 03/07/22 11:06 70 99 03/07/22 11:01 100 03/07/22 11:01 78 03/07/22 11:01 71 131/88 03/07/22 10:47 77 99 03/07/22 10:42 77 97 03/07/22 10:37 99 H 100 03/07/22 10:32 71 100 03/07/22 10:27 76 100 03/07/22 10:25 70 92 03/07/22 10:22 75 100 03/07/22 10:17 92 03/07/22 10:17 77 03/07/22 10:17 76 93 03/07/22 10:12 74 100 03/07/22 10:07 96 03/07/22 10:07 83 03/07/22 10:07 88 93 03/07/22 10:02 155 H 96 03/07/22 10:01 75 125/87 03/07/22 09:44 75 100 03/07/22 09:42 76 92 03/07/22 09:39 75 99 03/07/22 09:37 75 91 03/07/22 09:34 74 95 03/07/22 09:29 79 89 L 03/07/22 09:24 78 99 03/07/22 09:19 71 98 03/07/22 09:14 84 100 03/07/22 09:12 81 93 03/07/22 09:09 89 100 03/07/22 09:04 92 H 98 03/07/22 08:59 107 H 100 03/07/22 09:00 94 H 142/87 H 03/07/22 08:54 84 100 03/07/22 08:52 75 92 03/07/22 08:49 77 99 03/07/22 08:44 62 98 03/07/22 08:39 72 99 03/07/22 08:24 59 L 99 03/07/22 08:19 69 99 03/07/22 08:14 62 99 03/07/22 08:09 72 99 03/07/22 08:04 78 99 03/07/22 08:00 62 135/85 03/07/22 07:59 64 96 03/07/22 07:54 73 100 03/07/22 07:49 69 100 03/07/22 07:44 62 98 03/07/22 07:39 73 100 03/07/22 07:22 62 97 03/07/22 07:17 92 H 97 03/07/22 07:12 68 98 03/07/22 07:07 73 99 03/07/22 07:04 84 92 03/07/22 07:02 76 96 03/07/22 07:00 60 159/94 H 03/07/22 06:59 56 L 94 03/07/22 06:57 55 L 98 03/07/22 06:52 55 L 96 03/07/22 06:47 55 L 97 03/07/22 06:42 55 L 97 03/07/22 06:37 52 L 96 03/07/22 06:32 61 98 03/07/22 06:27 66 99 03/07/22 06:22 57 L 97 03/07/22 06:17 73 99 03/07/22 06:12 77 100 03/07/22 06:01 98 03/07/22 06:01 55 L 03/07/22 06:01 59 L 153/88 H 03/07/22 05:56 63 95 03/07/22 05:51 58 L 99 03/07/22 05:49 80 92 03/07/22 05:46 57 L 98 03/07/22 05:41 64 95 03/07/22 05:36 56 L 97 03/07/22 05:31 59 L 97 03/07/22 05:26 63 96 03/07/22 05:21 63 96 03/07/22 05:19 62 92 03/07/22 05:16 60 96 03/07/22 05:11 59 L 97 03/07/22 05:06 56 L 97 03/07/22 05:01 55 L 100 03/07/22 05:00 60 145/89 H 03/07/22 04:56 59 L 97 Diagnostic Findings Chest X-Ray 03/06/22 15:41 XR chest 1V portable HISTORY: Chest pressure. COMPARISON: None. FINDINGS: The lungs are clear. The cardiac silhouette is borderline enlarged. This may be accentuated by the AP portable technique. No pleural effusions. No pneumothorax. No acute fractures identified. IMPRESSION: The cardiac silhouette is borderline enlarged. This may be accentuated by the AP portable technique. ACT 112: Negative or not required by law. Electronically signed by: Gamaliel Parmar M.D. 03/06/2022 8:21 PM Chest CTA 03/06/22 20:27 CT ANGIOGRAM OF THE CHEST CLINICAL HISTORY: Chest pressure. COMPARISON STUDY: Chest x-ray dated 03/06/2022. TECHNIQUE: Following the IV administration of 109 cc of Optiray 320, CT angiogram of the chest was performed from the upper abdomen to the thoracic inlet utilizing the pulmonary embolus protocol. Images are reviewed in the axial, sagittal, and coronal planes. 3-D MIPS images are created and assessed. IV contrast was administered without complication. A dose lowering technique was utilized adhering to the principles of ALARA. CT DOSE: 574.95 mGy.cm FINDINGS: Thyroid: Imaged portions of the thyroid gland are normal in size and attenuation. Thoracic aorta: The thoracic aorta is normal in caliber and demonstrates standard 3-vessel arch anatomy. No dissection is seen. Pulmonary vasculature: The pulmonary trunk is normal in caliber. There are subsegmental pulmonary emboli seen in the right lower lobe on images #69 and #103. The remaining pulmonary vessels are clear. Heart: The heart is normal in size and without pericardial effusion. Lungs and pleural spaces: The lungs and pleural spaces are clear. Mediastinum: There is no mediastinal lymphadenopathy. Beckie: Clear. Axillae: There is no axillary lymphadenopathy. Upper abdomen: Partially visualized upper abdominal viscera is within normal limits. Skeletal structures: No lytic or blastic bony lesions are seen. IMPRESSION: 1. There are subsegmental pulmonary emboli within branches of the right lower lobe pulmonary artery. 2. The lungs are clear. Electronically signed by: Damion Mccracken M.D. 03/07/2022 8:01 AM ECG Additional Comments: EKG shows a sinus mechanism with low rate of 47 PG Care Time/CCT Total # of Minutes Spent Total Time Spent with Patient: Total time spent is greater than 50% in coordination of care (as documented) at patient's floor/unit and/or counseling patient: Coding Level of Care Code 35540 Inpt Consult Level 3 Diagnoses Pulmonary embolism I26.99
[2022-03-07] MEDS ORDERED: APIXABAN 5 MG TABLET PO SCH (18:00)
[2022-03-07] MEDS ORDERED: ONDANSETRON INJ 2 MG/ML 2 ML VIAL IV PRN (19:40)
[2022-03-07] MEDS: APIXABAN 5 MG TABLET PO SCH (20:08)
[2022-03-08 06:25] LABS: Hematocrit (blood only) 26.1 % (34.1-44.9); Hemoglobin 8.7 g/dl (12.0-16.0); Mean Corpuscular Hemoglobin 29.8 pg (25.0-34.0); Mean Corpuscular Hgb Conc 33.3 g/dL (32.0-36.0); Mean Corpuscular Volume 89.4 fL (80.0-100.0); Mean Platelet Volume 8.6 fL (9.4-12.3); Nucleated RBC # (auto) 0.02 K/uL (0-0); Nucleated RBC % (auto) 0.3 %; Platelet Count 318 K/uL (130-400); RDW Coefficient of Variation 13.2 % (11.5-14.5); RDW Standard Deviation 43.4 fL (36.4-46.3); Red Blood Count 2.92 M/uL (3.93-5.22)
--- NOTE | 2022-03-08 07:21 | Obstetrical Progress Note ---
Date of Service March 08, 2022 Assessment & Plan (1) Pulmonary embolism: (2) Pre-eclampsia in period: Plan Will need to see how she feels and blood pressures during the day today off mag. Patient has a hx of narcotic abuse over 10 years ago. Was in a program and clean since then. She got one dose of dilauded to see if could break the begum and seems to be effective. Discussed with the patient that I would like to stay away from further narcotics if possible and she agrees. Understands need for further monitoring of blood pressures. Admission and Anticipated Discharge Date Admission Date: March 06, 2022 Subjective Patient currently sleeping and not awoken as she has had poor sleep that is likely contributing to her BEGUM. When I last spoke to her in the middle of the night, she was feeling better. Had very dull frontal begum--the part in the back of her neck and wrapping around has resolved. No n/v. Tolerating a regular diet. No further cp or pressure. She tolerated Eliquis. Patient just came off 24 hours of mag at midnight. Physical Exam Constitutional: WD/WN, vitals as above (sleeping . first bp off mag as noted) Results & Data ([facility]) Vital Signs (Past 12 Hours) Vital Signs Temp Pulse Pulse Resp BP BP Pulse Ox 03/08/22 04:16 36.9 C 67 18 157/98 H 03/07/22 23:29 18 03/07/22 23:01 20 03/07/22 22:00 20 03/07/22 21:00 20 03/07/22 20:00 20 03/07/22 19:21 36.6 C 03/07/22 19:21 20 03/07/22 19:21 03/08/22 04:16 67 157/98 H 03/08/22 00:00 61 143/92 H 03/07/22 23:56 57 L 93 03/07/22 23:51 56 L 96 03/07/22 23:46 58 L 94 03/07/22 23:41 64 96 03/07/22 23:36 67 97 03/07/22 23:31 65 96 03/07/22 23:26 59 L 96 03/07/22 23:21 65 97 03/07/22 23:16 61 94 03/07/22 23:11 69 99 03/07/22 23:06 64 98 03/07/22 23:01 63 98 03/07/22 23:00 60 134/91 03/07/22 22:56 61 99 03/07/22 22:51 59 L 99 03/07/22 22:46 66 99 03/07/22 22:41 84 100 03/07/22 22:24 53 L 99 03/07/22 22:19 57 L 99 03/07/22 22:14 61 98 03/07/22 22:09 67 99 03/07/22 22:04 62 99 03/07/22 22:00 63 121/74 03/07/22 21:59 54 L 97 03/07/22 21:54 61 97 03/07/22 21:49 55 L 96 03/07/22 21:44 57 L 96 03/07/22 21:39 53 L 97 03/07/22 21:34 61 98 03/07/22 21:29 59 L 95 03/07/22 21:24 65 96 03/07/22 21:19 55 L 97 03/07/22 21:14 66 99 03/07/22 21:09 56 L 96 03/07/22 21:04 70 98 03/07/22 21:00 54 L 123/75 03/07/22 20:59 57 L 97 03/07/22 20:54 56 L 98 03/07/22 20:49 53 L 96 03/07/22 20:44 57 L 96 03/07/22 20:39 56 L 97 03/07/22 20:34 54 L 95 03/07/22 20:29 69 99 03/07/22 20:24 57 L 96 03/07/22 20:19 68 98 03/07/22 20:14 69 99 03/07/22 20:09 66 99 03/07/22 20:07 67 128/85 03/07/22 20:04 68 98 03/07/22 19:59 69 98 03/07/22 19:54 74 99 03/07/22 19:22 69 140/90 03/07/22 19:20 76 99 O2 Del Method 03/08/22 04:16 Room Air 03/07/22 23:29 03/07/22 23:01 03/07/22 22:00 03/07/22 21:00 03/07/22 20:00 03/07/22 19:21 03/07/22 19:21 03/07/22 19:21 Room Air 03/08/22 04:16 03/08/22 00:00 03/07/22 23:56 03/07/22 23:51 03/07/22 23:46 03/07/22 23:41 03/07/22 23:36 03/07/22 23:31 03/07/22 23:26 03/07/22 23:21 03/07/22 23:16 03/07/22 23:11 03/07/22 23:06 03/07/22 23:01 03/07/22 23:00 03/07/22 22:56 03/07/22 22:51 03/07/22 22:46 03/07/22 22:41 03/07/22 22:24 03/07/22 22:19 03/07/22 22:14 03/07/22 22:09 03/07/22 22:04 03/07/22 22:00 03/07/22 21:59 03/07/22 21:54 03/07/22 21:49 03/07/22 21:44 03/07/22 21:39 03/07/22 21:34 03/07/22 21:29 03/07/22 21:24 03/07/22 21:19 03/07/22 21:14 03/07/22 21:09 03/07/22 21:04 03/07/22 21:00 03/07/22 20:59 03/07/22 20:54 03/07/22 20:49 03/07/22 20:44 03/07/22 20:39 03/07/22 20:34 03/07/22 20:29 03/07/22 20:24 03/07/22 20:19 03/07/22 20:14 03/07/22 20:09 03/07/22 20:07 03/07/22 20:04 03/07/22 19:59 03/07/22 19:54 03/07/22 19:22 03/07/22 19:20 PG Care Time/CCT Total # of Minutes Spent Total Time Spent with Patient: Total time spent is greater than 50% in coordination of care (as documented) at patient's floor/unit and/or counseling patient: Coding Level of Care Code None Diagnoses Pulmonary embolism I26.99 Pre-eclampsia in period O14.95
[2022-03-08] MEDS: IBUPROFEN 600 MG TAB PO PRN (07:56)
[2022-03-08] MEDS: PRENATAL VITAMIN 1 TAB PO SCH (08:56)
[2022-03-08] MEDS: APIXABAN 5 MG TABLET PO SCH (08:56)
--- NOTE | 2022-03-08 11:34 | Obstetrical Progress Note ---
Date of Service March 08, 2022 Assessment & Plan Admission and Anticipated Discharge Date Admission Date: March 06, 2022 Subjective Patient is doing well. Awake, talking. States she feels much better. Headache has resolved. Would like to go home. Light lochia, no heavy vaginal bleeding. BPs this morning have been wnl. We discussed followup plan - she will make an appointment in OB office for BP/doctor check on Saturday. She will follow up with PCP for management of the Eliquis. Results & Data ([facility]) Vital Signs (Past 12 Hours) Vital Signs Temp Pulse Pulse Resp BP BP Pulse Ox 03/08/22 04:16 36.9 C 67 18 157/98 H 03/08/22 11:03 59 L 131/82 03/08/22 10:06 71 20 122/73 03/08/22 07:33 37.1 C 70 20 141/86 H 03/08/22 04:16 67 157/98 H 03/08/22 00:00 61 143/92 H 03/07/22 23:56 57 L 93 03/07/22 23:51 56 L 96 03/07/22 23:46 58 L 94 03/07/22 23:41 64 96 03/07/22 23:36 67 97 O2 Del Method 03/08/22 04:16 Room Air 03/08/22 11:03 03/08/22 10:06 03/08/22 07:33 03/08/22 04:16 03/08/22 00:00 03/07/22 23:56 03/07/22 23:51 03/07/22 23:46 03/07/22 23:41 03/07/22 23:36 PG Care Time/CCT Total # of Minutes Spent Total Time Spent with Patient: Total time spent is greater than 50% in coordination of care (as documented) at patient's floor/unit and/or counseling patient: Coding Level of Care Code None
--- NOTE | 2022-03-08 14:56 | Hospitalist Progress Note ---
Date of Service March 08, 2022 Assessment & Plan (1) Pulmonary embolism: Plan: This is considered a provoked pulmonary embolism in the setting of . Patient has no focal leg pain and an ultrasound of her legs would not add to her treatment duration or choice of treatment. Since the patient has only scant bleeding and no signs of right heart strain or hemodynamic issues the patient will be begun on Eliquis therapy 10 mg twice daily for 7 days then 5 mg twice daily for up to a 6-month course. Patient may discuss duration of course with her primary care provider upon discharge. Echo is normal, no right heart strain or pfo Patient has no issues with significant anemia (she has pre-existing anemia which likely is related to her recent delivery) she may be discharged home on Eliquis. Pt is OK for discharge home Admission and Anticipated Discharge Date Admission Date: March 06, 2022 Subjective Patient is doing well. Awake, talking. States she feels much better. Headache has resolved. no significant increase in vaginal discharge Light lochia, no heavy vaginal bleeding. BPs this morning have been wnl. Review of Systems Review of Systems: Mild distress and fatigue Bifrontal headache, dull, not positional, no visual changes no speech or swallowing issues no chest pain, pressure or palpitations Her pain is mostly right scapula no shortness of breath, cough or wheezes no abdominal pain, nausea or vomiting, diarrhea or constipation no dysuria, hematuria or frequency Very mild vaginal discharge that is dark No lower extremity swelling Mild right-sided back pain that is not reproducible and not radicular no bruising, bleeding or rashes no focal signs of weakness or numbness or altered sensation no complaints of anxiety or depression.. Physical Exam Physical Exam: The patient appeared well nourished and normally developed. Vital signs as documented. Head exam is normocephalic atraumatic PERRL Neck is without JVD, thyromegaly, or carotid bruits. Lungs are clear to auscultation, no focal loss of breath sounds there are no rubs there is no pleuritic component Cardiac exam, Rhythm is regular.. No murmurs, rubs or gallops. Abdominal exam reveals normal bowel sounds, soft mildly tender as would be expected in the bilateral lower quadrants and suprapubic area Extremities are nonedematous and both pedal pulses are present there is no cords negative Homans' sign Neurologic exam is alert and oriented, no focal loss of strength or sensation Skin is without bruises or rashes Psychologically is without concerns for anxiety or depression.. Results & Data Results & Data ([facility]) Vital Signs (Past 12 Hours) Vital Signs Temp Pulse Pulse Resp BP BP Pulse Ox 03/08/22 13:04 98.8 F 67 20 131/82 93 03/08/22 04:16 98.4 F 67 18 157/98 H 03/08/22 11:03 59 L 131/82 03/08/22 10:06 71 20 122/73 03/08/22 07:33 98.8 F 70 20 141/86 H 03/08/22 04:16 67 157/98 H O2 Del Method 03/08/22 13:04 03/08/22 04:16 Room Air 03/08/22 11:03 03/08/22 10:06 03/08/22 07:33 03/08/22 04:16 PG Care Time/CCT Total # of Minutes Spent Total Time Spent with Patient: Total time spent is greater than 50% in coordination of care (as documented) at patient's floor/unit and/or counseling patient: Coding Level of Care Code 98651 Subseq Hosp Care Lvl 1 Diagnoses Pulmonary embolism I26.99
--- NOTE | 2022-03-12 15:34 | Discharge Summary ---
Date of Service March 12, 2022 Admission HPI Per Admitting Provider 31yo PPD#7 from and PPH/curettage for retained placenta. She was doing well after going home on PPD#2, until PPD#6 she began having very had headache and a "gas bubble" in the upper mid abdomen that progressed to feeling like mid- chest pain and pressure today. Tylenol, motrin, excedrin all tried without relief. Lots of bilateral LE edema. Has been a rough week stress-fried with daughter in ER on Saturday as well. Has barely slept, very stressed, patient says she was chalking her symptoms up to anxiety/panic or sleep deprivation, rather than suspecting a medical problem. Today she realized she should call in due to the chest pressure, and was told to come to office, then was referred to hospital when her BP in office was high. She didn't realize it could be preeclampsia or even something worse until she was in the office today. She feels like she really needs a break, a chance to rest, and maybe that's all she needs - but is happy to accept IV mag and a 24hr admission if that's what we rec ommend. Whether it's preeclampsia or just being overwhelmed, she needs a "time out" and is accepting of readmission. Wants her to go home to help her mother with the infant so she can just sleep and make the most of her time here. Admission Exam (Per Admitting) Constitutional WD/WN, vitals as above Eyes PERRL, conjunctivae normal, anicteric sclerae ENMT external ear and nose normal, oropharynx normal Respiratory normal respiratory effort and able to speak in complete sentences; no respiratory distress Cardiovascular Rate/Rhythm: regular rate and regular rhythm Extremities: + pedal edema (same or slightly improved from last night) Musculoskeletal no cyanosis or clubbing, extremities motor strength 5/5 Skin no rashes, warm and dry Neurologic patellar DTR's 2+ bilat, sensation intact Psychiatric A+Ox3, euthymic affect Discharge Data Consultations 03/06/22 20:27 Consult Obstetrics Stat 03/07/22 08:34 Consult Hospitalist Stat Hospital Course (1) Pulmonary embolism: Patient initially seen in ER. When first asked to accept patient to L&D, this attending specifically asked that r/o PE study be done in ER, which it was, and a nighthawk read came back as negative for PE. The patient was then admitted to L&D for presumed preeclampsia given hypertension and headache, as well as epigastric / lower R lung area pain and chest heaviness, with normal PIH labs. By the vegetable vendor hours, daytime radiology over-read was back and did actually identify segmental PE in R lower lobe. Patient continued on magnesium therapy for 24 hours due to inability to r/o preeclampsia and benefit > harm of continuing therapy, but she was also started on anticoagulation by the hospitalist team. She was discharged to home on HD#2 with anticoagulation and plan for f/u with internal medicine, as well as and preeclampsia f/u with OB. Coding Level of Care Code None Diagnoses Pulmonary embolism I26.99
== END 2022-03-08 14:20 | disposition home or self-care (01) | DRG 176 ==
LOC: ED 15:23 → 4S1 21:56
DX: Z88.0 Allergy status to penicillin; I26.99 Other pulmonary embolism without acute cor pulmonale; Z79.82 Long term (current) use of aspirin; O14.95 Unspecified pre-eclampsia, complicating the puerperium; Z87.891 Personal history of nicotine dependence